=== PATIENT | male | born 1975 | race Caucasian/White ===

== ENCOUNTER 2017-07-01 17:59 | Emergency (ER) | payer BC ==
[2017-07-01 18:24] VITALS: BP 174/91; PULSE 87; TEMP 99; BMI 38.7
--- NOTE | 2017-07-01 18:40 | PDOC ---
History of Present Illness - History of Present Illness Initial Comments: 07/01/17 19:37 The patient is a 42 year old male, with a significant past medical history of IDDM, hypertension, and cigarette smoking, who presents to the emergency department with swelling to his b/l ankles. Patient had a recent stress test done with the [employer] at his primarys office. His heart was found to be normal but he was at risk for peripheral vascular disease. Denies pain in lower extremities. He denies chest pain, shortness of breath, headache and dizziness. He denies fever, chills, nausea, vomit, diarrhea and constipation. He denies dysuria, frequency, urgency and hematuria. Allergies: NKA Social history: pack/day smoker, h/o cocaine/heroin abuse Medications: Aspirin 81 mg PO daily Atorvastation Ca [Lipitor] 20 mg Labetalol 200 mg PO BID Lisinopril 40 mg PO daily PCP: Emely Brice <Irina Gonzalez - Last Filed: 07/01/17 21:16> <Ebony Jansen - Last Filed: 07/02/17 00:37> <Jesus Garner - Last Filed: 07/02/17 07:40> - General Chief Complaint: Edema Stated Complaint: swelling right leg/ankle Time Seen by Provider: 07/01/17 18:40 Past History <Irina Gonzalez - Last Filed: 07/01/17 21:16> <Ebony Jansen - Last Filed: 07/02/17 00:37> - Past Medical History COPD: No Diabetes: Yes (on insulin pump) Disorders: Yes (abnormal renal function) HTN: Yes Hypercholesterolemia: Yes - Suicide/Smoking/Psychosocial Hx Smoking History: Current every day smoker Have you smoked in the past 12 months: Yes Number of Cigarettes Smoked Daily: 20 Information on smoking cessation initiated: Yes 'Breaking Loose' booklet given: 07/01/17 Hx Alcohol Use: No Drug/Substance Use Hx: No Substance Use Type: Cocaine, Heroin Hx Substance Use Treatment: Yes (detox, [facility]) <Jesus Garner - Last Filed: 07/02/17 07:40> - Past Medical History Allergies/Adverse Reactions: Allergies Allergy/AdvReac Type Severity Reaction Status Date / Time No Known Allergies Allergy Verified 07/01/17 18:14 Home Medications: Ambulatory Orders Aspirin 81 mg PO DAILY 07/01/17 Atorvastatin Ca [Lipitor] 20 mg PO HS 07/01/17 Insulin Lispro Protamin/Lispro [Humalog Mix 75-25 Kwikpen] 0 unit SQ PRN Labetalol HCl [Normodyne -] 200 mg PO BID 07/01/17 Lisinopril [Prinivil -] 40 mg PO DAILY 07/01/17 Review of Systems - Review of Systems Comments:: 07/01/17 19:34 GENERAL/CONSTITUTIONAL: No fever or chills. No weakness. HEAD, EYES, EARS, NOSE AND THROAT: No change in vision. No ear pain or discharge. No sore throat. CARDIOVASCULAR: No chest pain or shortness of breath. RESPIRATORY: No cough, wheezing, or hemoptysis. GASTROINTESTINAL: No nausea, vomiting, diarrhea or constipation. GENITOURINARY: No dysuria, frequency, or change in urination. MUSCULOSKELETAL: No joint or muscle swelling or pain. No neck or back pain. SKIN: No rash NEUROLOGIC: No headache, vertigo, loss of consciousness, or change in strength/ sensation. ENDOCRINE: No increased thirst. No abnormal weight change. HEMATOLOGIC/LYMPHATIC: No anemia, easy bleeding, or history of blood clots. Bilateral lower extremity ankle swelling. ALLERGIC/IMMUNOLOGIC: No hives or skin allergy. <Irina Gonzalez - Last Filed: 07/01/17 21:16> *Physical Exam - Vital Signs Last Vital Signs Temp Pulse Resp BP Pulse Ox 99 F 87 18 174/91 99 07/01/17 18:00 07/01/17 18:00 07/01/17 18:00 07/01/17 18:00 07/01/17 18:00 - Physical Exam Comments: 07/01/17 19:35 GENERAL: Awake, alert, and fully oriented, in no acute distress HEAD: No signs of trauma EYES: PERRLA, EOMI, sclera anicteric, conjunctiva clear ENT: Auricles normal inspection, hearing grossly normal, nares patent, oropharynx clear without exudates. Moist mucosa NECK: Normal ROM, supple, no lymphadenopathy, JVD, or masses LUNGS: Breath sounds equal, clear to auscultation bilaterally. No wheezes, and no crackles HEART: Regular rate and rhythm, normal S1 and S2, no murmurs, rubs or gallops ABDOMEN: Soft, nontender, normoactive bowel sounds. No guarding, no rebound. No masses EXTREMITIES: +1 b/l non-pitting ankle edema.Normal range of motion. No clubbing or cyanosis. No cords, erythema, or tenderness NEUROLOGICAL: Cranial nerves II through XII grossly intact. Normal speech, normal gait SKIN: Warm, Dry, normal turgor, no rashes or lesions noted. <Irina Gonzalez - Last Filed: 07/01/17 21:16> - Vital Signs Last Vital Signs Temp Pulse Resp BP Pulse Ox 99 F 87 18 174/91 99 07/01/17 18:00 07/01/17 18:00 07/01/17 18:00 07/01/17 18:00 07/01/17 18:00 <Ebony Jansen - Last Filed: 07/02/17 00:37> - Vital Signs Last Vital Signs Temp Pulse Resp BP Pulse Ox 99 F 87 18 174/91 99 07/01/17 18:00 07/01/17 18:00 07/01/17 18:00 07/01/17 18:00 07/01/17 18:00 <Jesus Garner - Last Filed: 07/02/17 07:40> ED Treatment Course - RADIOLOGY Radiograph Interpretation: 07/01/17 21:16 US- B/L legs Impression: No evidence of deep vein thrombosis in the right of left lower extremities. Mild edema within bilateral lower legs. ankles. Reported by: Spenser Herrera DO [id number]/01/[id number] <Irina Gonzalez - Last Filed: 07/01/17 21:16> - RADIOLOGY Radiology Studies Ordered: Category Date Time Status DUPLEX VASCUL US-2LEGS [US] Stat Ultrasound 07/01/17 19:28 Completed <Ebony Jansen - Last Filed: 07/02/17 00:37> Medical Decision Making - Medical Decision Making Documentation has been prepared under my direction and personally reviewed by me in its entirety. I attest that this documented accurately reflects all work, treatment, procedures and medical decision making performed by me. As noted above, this 42-year-old man with a history of HTN/IDDM/HLD presents with a few week history of bilateral lower extremity edema. Although his PCP believes that this edema is likely related to his antihypertensive medications, patient was told that the results of small possibility that the edema could be related to DVT. Patient was offered ultrasound Doppler studies in the office but patient deferred. He is now concerned that he may have thromboembolic disease. No clear risk factors for DVT: No recent immobilization/surgeries/ long airplane or auto travel; no family history of DVTs Exam as noted Bilateral Doppler duplex studies of lower extremities performed: No evidence of DVT in either. Results discussed with the patient. The patient should elevate his legs as much as possible and continue medications as prescribed. He should follow-up with his PCP, Dr. Brice within the next week. If he has worsening edema/pain or develops shortness of breath, chest pain or cough, he should return to the emergency <Ebony Jansen - Last Filed: 07/02/17 00:37> - Medical Decision Making Patient signed out to Dr. Jansen at 7 PM pending further evaluation <Jesus Garner - Last Filed: 07/02/17 07:40> *DC/Admit/Observation/Transfer <Irina Gonzalez - Last Filed: 07/01/17 21:16> <Ebony Jansen - Last Filed: 07/02/17 00:37> <Jesus Garner - Last Filed: 07/02/17 07:40> Diagnosis at time of Disposition: Bilateral lower extremity edema - Discharge Dispostion Disposition: HOME Condition at time of disposition: Stable - Referrals Referrals: Emely Brice MD [Primary Care Provider] - 7 days - Patient Instructions Printed Discharge Instructions: DI for Peripheral Edema -- Bilateral, Smoking Cessation Additional Instructions: elevate legs as much as possible continue medications as prescribed followup with Dr Brice within 1 week return to ER if you develop pain or shortness of breath - Post Discharge Activity
== END 2017-07-01 21:23 | disposition home or self-care (01) ==
LOC: SUPCPDRO 17:59 → FER 17:59
DX: M79.89 Other specified soft tissue disorders (principal)
CPT/HCPCS: 93970-TC; 99282-25

== ENCOUNTER 2018-02-20 17:55 | Emergency (ER) | payer BC ==
--- NOTE | 2018-02-20 18:12 | PDOC ---
History of Present Illness - General Chief Complaint: Edema Stated Complaint: SWELLING LEGS Time Seen by Provider: 02/20/18 17:57 History Source: Patient Exam Limitations: No Limitations - History of Present Illness Initial Comments: 02/20/18 18:10 Mr Packer is a 43 year old male, with a significant past medical history of IDDM (on insulin pump), hypertension, and current tobacco use, who presents to the emergency department with swelling to his b/l legs. Pt s/p recent stress test which was reportedly normal. Pt contacted his renal doctor (dr Shonna self) who said that he should come to the ER because he has renal insufficiency (as a result of his HTN and Lisinopril ). No pain in the lower extremities. He does have mild chest pain (Which he likens to having a hair pulled out of his chest), no orthopnea, no PND No exertional dyspnea He denies fever, chills, cough. 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 HEAD, EYES, EARS, NOSE AND THROAT: No: change in vision, ear pain, discharge, sore throat, throat swelling. CARDIOVASCULAR: No: chest pain, lightheadedness, palpitations, syncope RESPIRATORY: No: cough, shortness of breath, wheezing, hemoptysis, stridor. GASTROINTESTINAL: No: nausea, vomiting, diarrhea, abdominal pain GENITOURINARY: No: dysuria, hematuria, frequency, urgency, flank pain. MUSCULOSKELETAL: yes: leg swepping No: back pain, neck pain, joint pain, muscle swelling or pain SKIN: No: lesions, pallor, rash or easy bruising. NEUROLOGIC: No: headache, vertigo, paresthesias, weakness ENDOCRINE: No: unexplained weight gain or loss HEMATOLOGIC/LYMPHATIC: No: anemia, easy bleeding, swelling nodes. PE: GENERAL: The patient is in no acute distress. HEAD: Normal with no signs of trauma. EYES: PERRLA, EOMI, sclera anicteric, conjunctiva clear. ENT: Ears normal, nares patent, oropharynx clear without exudates. Moist mucous membranes. NECK: Normal range of motion, supple without lymphadenopathy, JVD, or masses. LUNGS: Breath sounds equal, clear to auscultation bilaterally. No wheezes, and no crackles. HEART:Regular rate and rhythm, normal S1 and S2 without murmur, rub or gallop. ABDOMEN: Soft, nontender, normoactive bowel sounds. No guarding, no rebound. No masses palpable. EXTREMITIES: Normal range of motion, (+) 3+ pitting edema. NEUROLOGICAL: Cranial nerves II through XII grossly intact. Normal speech. No focal neurological deficits. MUSCULOSKELETAL: Back non-tender to palpation, no CVA tenderness SKIN: Warm, Dry, normal turgor, no rashes or lesions noted. 02/20/18 18:31 Past History - Past Medical History Allergies/Adverse Reactions: Allergies Allergy/AdvReac Type Severity Reaction Status Date / Time No Known Allergies Allergy Verified 07/01/17 18:14 Home Medications: Ambulatory Orders Atorvastatin Ca [Lipitor] 20 mg PO HS 07/01/17 Labetalol HCl [Normodyne -] 200 mg PO TID 07/01/17 Hydralazine HCl 300 mg PO TID 02/20/18 COPD: No Diabetes: Yes Disorders: Yes (abnormal renal function) HTN: Yes Hypercholesterolemia: Yes - Suicide/Smoking/Psychosocial Hx Smoking History: Current every day smoker Have you smoked in the past 12 months: Yes Number of Cigarettes Smoked Daily: 20 'Breaking Loose' booklet given: 11/29/12 Hx Alcohol Use: No Drug/Substance Use Hx: No Substance Use Type: Cocaine, Heroin Hx Substance Use Treatment: Yes (detox, [facility]) ED Treatment Course - LABORATORY CBC & Chemistry Diagram: 02/20/18 19:20 02/20/18 19:20 Medical Decision Making - Medical Decision Making 02/20/18 18:36 Twelve-lead EKG was performed and reviewed by me. There is normal sinus rhythm with a normal rate. The axis is normal. The intervals are normal. There are no ST or T wave abnormalities. Impression: Normal twelve-lead EKG 43-year-old male presented to emergency department with bilateral lotion be edema. Differential diagnosis includes: Renal insufficiency, fluid overloading, heart failure, DVT. Labs sent including creatinine, BNP. Chest x-ray ordered to evaluate for heart failure Duplex ordered to evaluate for DVT Pt signed out to Dr Gabriel pending labs, duplex *DC/Admit/Observation/Transfer Diagnosis at time of Disposition: Bilateral lower extremity edema - Discharge Dispostion Disposition: HOME Condition at time of disposition: Stable - Referrals Referrals: Emely Brice MD [Primary Care Provider] - - Patient Instructions Additional Instructions: It is important that you call your doctor in the morning and get an appointment to follow up this week at all possible The results of your d-dimer and TSH are still pending. However I will call you if they are abnormal and there is anything that needs to be addressed tonight. Return to the emergency department immediately with ANY new, persistent or worsening symptoms. Continue any medications as previously prescribed by your physician. You should follow up with your primary doctor as soon as possible regarding today's emergency department visit. . Please make sure your doctor reviews the results of your emergency evaluation. Thank you for coming to the Emergency Department today for your care. It was a pleasure to see you today. Please note that your evaluation is INCOMPLETE until you follow-up with your doctor. - Post Discharge Activity
[2018-02-20 18:53] VITALS: TEMP 98.4; BMI 37.3
--- NOTE | 2018-02-20 19:21 | PDOC ---
*Physical Exam - Vital Signs Last Vital Signs Temp Pulse Resp BP Pulse Ox 98.4 F 86 18 179/93 H 98 02/20/18 17:55 02/20/18 17:55 02/20/18 17:55 02/20/18 17:55 02/20/18 17:55 ED Treatment Course - LABORATORY CBC & Chemistry Diagram: 02/20/18 19:20 02/20/18 19:20 Progress Note - Progress Note Progress Note: Care of this patient was transferred to [place] from Dr. Deleon at 1900 hrs. This is a insulin-dependent diabetic with history of hyperlipidemia and hyper extension. Patient is borderline med compliant. Patient does have renal insufficiency and comes in complaining approximately 1 week of bilateral leg edema. Patient has a workup in progress including blood work and venous Dopplers of his legs bilateral. Patient had an EKG that was normal and a chest x-ray that shows no acute pathology. Patient's troponin and blood work is still pending as well as his venous Doppler results. If patient's workup is negative for any significant new pathology patient will be discharged home and follow up with his primary care doctor Patient is ultrasound Doppler was negative. Patient's CBC is normal with the exception of some mild anemia. Patient's chemistries do show renal insufficiency which is chronic Patient had a d-dimer sent that is still pending as well as a TSH. Patient is aware that these results are still pending I told him I would call him if there was anything that came back abnormal that he needed to address tonight. Patient discharged home and results of his workup *DC/Admit/Observation/Transfer Diagnosis at time of Disposition: Bilateral lower extremity edema - Discharge Dispostion Disposition: HOME Condition at time of disposition: Stable Decision to Admit order: No - Referrals Referrals: Emely Brice MD [Primary Care Provider] - - Patient Instructions Additional Instructions: It is important that you call your doctor in the morning and get an appointment to follow up this week at all possible The results of your d-dimer and TSH are still pending. However I will call you if they are abnormal and there is anything that needs to be addressed tonight. Return to the emergency department immediately with ANY new, persistent or worsening symptoms. Continue any medications as previously prescribed by your physician. You should follow up with your primary doctor as soon as possible regarding today's emergency department visit. . Please make sure your doctor reviews the results of your emergency evaluation. Thank you for coming to the Emergency Department today for your care. It was a pleasure to see you today. Please note that your evaluation is INCOMPLETE until you follow-up with your doctor. - Post Discharge Activity
[2018-02-20 19:39] LABS: BASO % 1.2 % (0-2.0); HEMATOCRIT 28.6 % (35.4-49); HEMOGLOBIN 9.6 GM/dl (11.7-16.9); LYMPH % 18.2 % (8-40); MCHC 33.7 g/dl (32.0-35.9); MEAN CELL VOLUME 91.8 fl (80-96); MEAN PLT VOLUME 8.1 fl (7.5-11.1); MONO % 10.6 % (3.8-10.2); PLATELET COUNT 274 K/MM3 (134-434); RBC 3.12 M/mm3 (4.00-5.60); RDW 12.8 % (11.9-15.9); WHITE BLOOD COUNT 7.7 K/mm3 (4.0-10.8)
[2018-02-20 19:52] LABS: ALBUMIN 3.2 g/dl (3.5-5.0); ALK PHOS 41 U/L (32-92); BILIRUBIN,TOTAL 0.8 mg/dl (0.2-1.0); CREATININE 3.8 mg/dl (0.6-1.3); SGOT/AST 15 U/L (10-42); SGPT/ALT 20 U/L (10-40); TOT PROT 6.2 g/dl (6.4-8.3)
[2018-02-20 19:57] VITALS: BP 170/81; PULSE 78
[2018-02-20 20:00] LABS: ANION GAP 8 MMOL/L (8-16); BLOOD UREA NITROGEN 59 mg/dl (7-18); CALCIUM 8.3 mg/dl (8.4-10.2); CHLORIDE 113 mmol/L (98-107); CO2 18 mmol/L (22-28); GLUCOSE,RANDOM 77 mg/dl (74-106); POTASSIUM 4.9 mmol/L (3.5-5.1); SODIUM 139 mmol/L (136-145)
[2018-02-20 21:04] LABS: N-TERMINAL BNP 732.3 pg/ml (5-125)
--- NOTE | 2018-02-21 10:48 | EKG ---
Test Reason : Blood Pressure : / mmHG Vent. Rate : 079 BPM Atrial Rate : 079 BPM P-R Int : 160 ms QRS Dur : 090 ms QT Int : 378 ms P-R-T Axes : 061 015 021 degrees QTc Int : 433 ms NORMAL SINUS RHYTHM NORMAL ECG WHEN COMPARED WITH ECG OF 02-MAY-2007 08:08, NO SIGNIFICANT CHANGE WAS FOUND Confirmed by Chino Lees MD ([id number]) on 02/21/2018 10:48:08 AM Referred By: Confirmed By:Chino Lees MD
== END 2018-02-20 20:35 | disposition home or self-care (01) ==
LOC: FER 17:55
DX: M79.89 Other specified soft tissue disorders (principal); I10 Essential (primary) hypertension; E11.9 Type 2 diabetes mellitus without complications; F17.210 Nicotine dependence, cigarettes, uncomplicated; N28.9 Disorder of kidney and ureter, unspecified
CPT/HCPCS: 36415; 71045-TC-FY; 80053; 82550; 82553; 83880; 84443; 84484; 85025; 93005; 93970-TC; 99285-25

== ENCOUNTER 2019-05-14 13:08 | Emergency (ER) | payer BC, OTHER ==
[2019-05-14] MEDS ORDERED: DIPHTH,PERTUSS(ACELL),TET 0.5 ML DISP.SYRIN IM ONE ×2 (13:22→13:50)
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
[2019-05-14 13:23] VITALS: BP 165/83; PULSE 77; TEMP 97.5; BMI 37.3
[2019-05-14] MEDS ORDERED: ACETAMINOPHEN 325 MG TABLET (FP) PO ONE (14:18)
[2019-05-14] MEDS ORDERED: ACETAMINOPHEN 500 MG TABLET (FP) ONE (14:26)
[2019-05-14] MEDS ORDERED: ONDANSETRON *ODT* 4 MG TABLET SL ONE (15:51)
[2019-05-14] MEDS ORDERED: CYCLOBENZAPRINE HCL 5 MG TABLET PO ONE (15:51)
[2019-05-14] MEDS ORDERED: LIDOCAINE 5% TOPICAL PATCH TP ONE (15:51)
[2019-05-14] MEDS ORDERED: CYCLOBENZAPRINE HCL 10 MG TABLET (FP) ONE ×2 (15:51)
[2019-05-14] MEDS ORDERED: LIDOCAINE 5% TOPICAL PATCH ONE (15:51)
[2019-05-14] MEDS ORDERED: ONDANSETRON *ODT* 4 MG TABLET ONE (15:53)
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
== END 2019-05-14 16:26 | disposition home or self-care (01) ==
LOC: JER 13:08
CPT/HCPCS: 70450-TC; 72125-TC; 73562-TC-LT-FY; 90715; 99282-25; Q0162

== ENCOUNTER → 2019-12-25 | Day surgery (SDC) | payer OTHER | END | disposition home or self-care (01) | LOC: JRADIR 09:27 | PROC: 02PYX3Z Removal of Infusion Device from Great Vessel, External Approach (ICD-10-PCS; principal; 2019-12-25) | DX: Z45.2 Encounter for adjustment and management of vascular access device (principal) | CPT/HCPCS: 36589 ==

== ENCOUNTER 2020-05-21 17:19 | Emergency (ER) | payer OTHER ==
[2020-05-21 17:39] VITALS: BP 179/94; PULSE 86; TEMP 98.5; BMI 36.9
[2020-05-21] MEDS ORDERED: KETOROLAC TROMETHAMINE 60 MG/2 ML VIAL ONE (18:22)
[2020-05-21] MEDS ORDERED: KETOROLAC TROMETHAMINE 60 MG/2 ML VIAL IM ONE (18:26)
== END 2020-05-21 19:06 | disposition home or self-care (01) ==
LOC: FER 17:19
PROC: 3E0233Z Introduction of Anti-inflammatory into Muscle, Percutaneous Approach (ICD-10-PCS; principal; 2020-05-21)
DX: S20.211A Contusion of right front wall of thorax, initial encounter (principal)
CPT/HCPCS: 71101-TC-RT-FY; 74018-TC-FY; 96372; 99284-25

== ENCOUNTER 2020-12-02 14:13 | Emergency (ER) | payer OTHER ==
[2020-12-02 14:27] VITALS: BP 134/79; PULSE 102; TEMP 97.8; BMI 36.9
[2020-12-02] MEDS ORDERED: ACETAMINOPHEN 325 MG TABLET (FP) PO ONE (14:47)
[2020-12-02] MEDS ORDERED: ACETAMINOPHEN 325 MG TABLET (FP) ONE (15:10)
[2020-12-02 15:56] LABS: ALBUMIN 3.3 g/dl (3.4-5.0); BILIRUBIN,TOTAL 0.7 mg/dl (0.2-1); CREATININE 10.1 mg/dl (0.55-1.3); TOT PROT 6.8 g/dl (6.4-8.2)
[2020-12-02 16:31] LABS: BASO % 0.6 % (0-2.0); EOS % 2.4 % (0-4.5); HEMATOCRIT 28.3 % (35.4-49); LYMPH % 10.5 % (8-40); MCH 33.5 pg (25.7-33.7); MCHC 35.4 g/dl (32.0-35.9); MEAN CELL VOLUME 94.5 fl (80-96); MEAN PLT VOLUME 8.4 fl (7.5-11.1); MONO % 9.3 % (3.8-10.2); NEUT % 77.2 % (42.8-82.8); PLATELET COUNT 248 10^3/uL (134-434); RBC 2.99 M/mm3 (4.00-5.60); WHITE BLOOD COUNT 9.9 K/mm3 (4.0-10.8)
== END 2020-12-02 17:33 | disposition home or self-care (01) ==
LOC: FER 14:13
DX: R25.2 Cramp and spasm (principal)
CPT/HCPCS: 36415; 80053; 83735; 85025; 93005; 99284-25

== ENCOUNTER 2021-01-03 12:35 | Emergency (ER) | payer OTHER ==
[2021-01-03 13:00] VITALS: BP 134/80; PULSE 89; TEMP 97.8; BMI 36.9
[2021-01-03] MEDS ORDERED: AMOX TR/POT CLAV 875MG/125MG TABLETS (FP) PO ONE (13:11)
[2021-01-03] MEDS ORDERED: SULFAMETHOXAZOLE/TRIMETHOPRIM 800MG/160MG D.S. TABLET PO ONE (13:11)
[2021-01-03] MEDS ORDERED: SULFAMETHOXAZOLE/TRIMETHOPRIM 800MG/160MG D.S. TABLET ONE (13:23)
[2021-01-03] MEDS ORDERED: AMOX TR/POT CLAV 875MG/125MG TABLETS (FP) ONE (13:24)
== END 2021-01-03 13:50 | disposition home or self-care (01) ==
LOC: FER 12:35
DX: L03.115 Cellulitis of right lower limb (principal); W55.03XA Scratched by cat, initial encounter; Y92.480 Sidewalk as the place of occurrence of the external cause; Y93.01 Activity, walking, marching and hiking
CPT/HCPCS: 99283-25

== ENCOUNTER 2021-01-18 16:16 | Emergency (ER) | payer OTHER ==
[2021-01-18 16:43] VITALS: BMI 36.9
[2021-01-18 18:12] VITALS: BP 163/90; PULSE 80; TEMP 98
== END 2021-01-18 18:13 | disposition home or self-care (01) ==
LOC: JER 16:16
DX: R60.0 Localized edema (principal)
CPT/HCPCS: 99282-25

== ENCOUNTER 2021-11-17 22:57 | Inpatient (IN) | payer OTHER ==
[2021-11-17 23:19] VITALS: BMI 37.2
[2021-11-18 00:31] LABS: BASO % 1.4 % (0-2.0); EOS % 4.1 % (0-4.5); HEMATOCRIT 29.5 % (35.4-49); HEMOGLOBIN 10.4 GM/dL (11.7-16.9); LYMPH % 20.4 % (8-40); MCH 31.9 pg (25.7-33.7); MCHC 35.2 g/dl (32.0-35.9); MEAN CELL VOLUME 90.6 fl (80-96); NEUT % 62.1 % (42.8-82.8); PLATELET COUNT 199 10^3/uL (134-434); RBC 3.26 M/mm3 (4.00-5.60); RDW 14.5 % (11.9-15.9)
[2021-11-18 00:41] LABS: INR 1.06 (0.83-1.09); PROTHROMBIN TIME (PATIENT) 12.2 SEC (9.7-13.0)
[2021-11-18 00:43] LABS: ACTIVATED PTT 27.4 SECONDS (25.2-36.5)
[2021-11-18 00:47] LABS: CHLORIDE 95 mmol/L (98-107); SODIUM 133 mmol/L (136-145)
[2021-11-18 00:49] LABS: CALCIUM 8.2 mg/dL (8.5-10.1)
[2021-11-18 00:50] LABS: ANION GAP 15 MMOL/L (8-16); BLOOD UREA NITROGEN 77.7 mg/dL (7-18); CO2 23 mmol/L (21-32)
[2021-11-18 00:53] LABS: SGOT/AST 6 U/L (15-37); SGPT/ALT 16 U/L (13-61)
[2021-11-18 00:54] LABS: BILIRUBIN,TOTAL 0.5 mg/dL (0.2-1); TOT PROT 6.9 g/dl (6.4-8.2)
[2021-11-18 00:56] LABS: ALK PHOS 85 U/L (45-117)
[2021-11-18 00:57] LABS: N-TERMINAL BNP 500.7 pg/ml (5-125)
[2021-11-18 01:07] LABS: GLUCOSE,RANDOM 514 mg/dL (74-106)
[2021-11-18 01:08] LABS: CREATININE 10.3 mg/dL (0.55-1.3)
[2021-11-18] MEDS ORDERED: INSULIN REGULAR HUMAN 100 UNITS/ML *VIAL IVPUSH ONE (01:24)
[2021-11-18] MEDS ORDERED: SODIUM CHLORIDE 0.9% 500 ML INFUS.BAG IV ONE (01:25)
[2021-11-18] MEDS ORDERED: LACTATED RINGERS SOLUTION 1000 ML INFUS.BAG IV ONE (03:04)
[2021-11-18] MEDS ORDERED: ACETAMINOPHEN 325 MG TABLET (FP) PO PRN (04:15)
[2021-11-18] MEDS ORDERED: POLYETHYLENE GLYCOL (HEALTHYLAX) 3350 17 GM PACKET PO PRN (04:15)
[2021-11-18] MEDS ORDERED: HEPARIN NA (PORCINE) 5,000 UNITS/ML 1ML VIAL SQ SCH (06:00)
[2021-11-18] MEDS ORDERED: INSULIN SLIDING SCALE (NOVOLOG) 1 VIAL SQ SCH (07:00)
[2021-11-18 07:01] LABS: EPI CELLS 5 /uL (0-25.1); HYALINE CASTS 1 /uL (0-3.1); URINE APPEARANCE CLEAR; URINE BACTERIA 90 /uL (0-1359); URINE BILIRUBIN NEGATIVE (NEGATIVE); URINE COLOR YELLOW; URINE GLUCOSE (UA) 3+ (NEGATIVE); URINE KETONE NEGATIVE (NEGATIVE); URINE LEUK ESTERASE NEGATIVE (NEGATIVE); URINE NITRITE NEGATIVE (NEGATIVE); URINE PROTEIN 3+ (NEGATIVE); URINE RBC 11 /uL (0-23.9); URINE UROBILINOGEN 0.2 mg/dL (0.2-1.0); URINE WBC 5 /uL (0-25.8)
[2021-11-18 08:38] LABS: CHLORIDE 99 mmol/L (98-107); SODIUM 136 mmol/L (136-145)
[2021-11-18 08:41] LABS: ANION GAP 13 MMOL/L (8-16); BLOOD UREA NITROGEN 80.7 mg/dL (7-18); CALCIUM 8.2 mg/dL (8.5-10.1); CO2 23 mmol/L (21-32); GLUCOSE,RANDOM 228 mg/dL (74-106); MAGNESIUM 1.5 mg/dL (1.8-2.4)
[2021-11-18 08:44] LABS: PHOSPHOROUS 6.8 mg/dL (2.5-4.9)
[2021-11-18 09:10] LABS: HEMATOCRIT 28.2 % (35.4-49); HEMOGLOBIN 9.9 GM/dL (11.7-16.9); MCH 30.1 pg (25.7-33.7); MCHC 34.9 g/dl (32.0-35.9); MEAN CELL VOLUME 86.2 fl (80-96); MEAN PLT VOLUME 8.3 fl (7.5-11.1); PLATELET COUNT 181 10^3/uL (134-434); RBC 3.27 M/mm3 (4.00-5.60); RDW 14.9 % (11.9-15.9); WHITE BLOOD COUNT 5.5 K/mm3 (4.0-10.0)
[2021-11-18] MEDS ORDERED: MAGNESIUM SULF 50% (8.12 MEQ/2 ML-1 GM VIAL) IVPB ONE (09:28)
[2021-11-18] MEDS ORDERED: MAGNESIUM SULF 50% (8.12 MEQ/2 ML-1 GM VIAL) ONE (09:36)
[2021-11-18 11:32] LABS: ANISOCYTOSIS 1+; MACROCYTOSIS 0
[2021-11-18] MEDS ORDERED: PERITONEAL DIALYSIS 2.5% SOLN 2,500 ML IP SCH (12:00)
[2021-11-18] MEDS ORDERED: PERITONEAL DIALYSIS 1.5% SOLN 2,500 ML IP SCH (13:30)
[2021-11-18 17:17] VITALS: BP 168/72; PULSE 74; TEMP 98.1
[2021-11-18] MEDS ORDERED: SEVELAMER CARBONATE 800 MG TAB (FP) PO SCH (17:30)
[2021-11-18] MEDS ORDERED: INSULIN (LEVEMIR) 100 UNITS/ML UNITS SQ SCH (22:00)
== END 2021-11-18 17:05 | disposition left against medical advice (07) | DRG 637 ==
LOC: JER 22:57 → JERBED 11-18 04:21
PROVIDERS: ADMIT Hospitalist; ATTEND Family Medicine
DX: E11.65 Type 2 diabetes mellitus with hyperglycemia (principal); N18.6 End stage renal disease; L97.528 Non-pressure chronic ulcer of other part of left foot with other specified severity; I12.0 Hypertensive chronic kidney disease with stage 5 chronic kidney disease or end stage renal disease; L97.818 Non-pressure chronic ulcer of other part of right lower leg with other specified severity; E11.622 Type 2 diabetes mellitus with other skin ulcer; E11.621 Type 2 diabetes mellitus with foot ulcer; E11.22 Type 2 diabetes mellitus with diabetic chronic kidney disease; R42 Dizziness and giddiness; D64.9 Anemia, unspecified; R60.0 Localized edema; Z89.422 Acquired absence of other left toe(s); Z99.2 Dependence on renal dialysis; Z91.14 Patient's other noncompliance with medication regimen
CPT/HCPCS: 0241U-QW; 36415; 71045-TC-FY; 80048; 80053; 81003; 82010; 82962; 83735; 83880; 84100; 84484; 85025; 85610; 85730; 86850; 86900; 86901; 93005; 93010; 99285-25; J1644

== ENCOUNTER 2021-11-18 20:24 | Inpatient (IN) | payer OTHER ==
[2021-11-18] MEDS ORDERED: LABETALOL HCL 5 MG/1 ML (100MG/20 ML VIAL) IVPUSH ONE (21:41)
[2021-11-18] MEDS ORDERED: LABETALOL HCL 5 MG/1 ML (100MG/20 ML VIAL) ONE (21:43)
[2021-11-18 22:01] LABS: BASO % 1.1 % (0-2.0); EOS % 5.2 % (0-4.5); HEMOGLOBIN 10.8 GM/dL (11.7-16.9); LYMPH % 19.5 % (8-40); MCH 34.4 pg (25.7-33.7); MCHC 37.2 g/dl (32.0-35.9); MEAN CELL VOLUME 92.3 fl (80-96); MEAN PLT VOLUME 8.1 fl (7.5-11.1); MONO % 11.7 % (3.8-10.2); NEUT % 62.5 % (42.8-82.8); PLATELET COUNT 203 10^3/uL (134-434); RBC 3.14 M/mm3 (4.00-5.60); RDW 14.7 % (11.9-15.9); WHITE BLOOD COUNT 6.2 K/mm3 (4.0-10.0)
[2021-11-18 22:15] LABS: CHLORIDE 98 mmol/L (98-107); SODIUM 135 mmol/L (136-145)
[2021-11-18 22:18] LABS: ALBUMIN 3.1 g/dl (3.4-5.0); CALCIUM 8.8 mg/dL (8.5-10.1)
[2021-11-18 22:19] LABS: ANION GAP 14 MMOL/L (8-16); BLOOD UREA NITROGEN 82.7 mg/dL (7-18); CO2 22 mmol/L (21-32); GLUCOSE,RANDOM 325 mg/dL (74-106)
[2021-11-18 22:21] LABS: SGOT/AST 20 U/L (15-37)
[2021-11-18 22:22] LABS: SGPT/ALT 20 U/L (13-61)
[2021-11-18 22:23] LABS: BILIRUBIN,TOTAL 0.6 mg/dL (0.2-1)
[2021-11-18 22:24] LABS: ALK PHOS 78 U/L (45-117)
[2021-11-18 22:37] LABS: CREATININE 10.5 mg/dL (0.55-1.3)
[2021-11-18 22:52] LABS: MAGNESIUM 1.8 mg/dL (1.8-2.4)
[2021-11-18 22:55] LABS: PHOSPHOROUS 7.2 mg/dL (2.5-4.9)
[2021-11-19] MEDS ORDERED: INSULIN REGULAR HUMAN 100 UNITS/ML *VIAL SQ ONE (00:12)
[2021-11-19 00:14] LABS: EPI CELLS 3 /uL (0-25.1); HYALINE CASTS 0 /uL (0-3.1); URINE APPEARANCE CLEAR; URINE BACTERIA 24 /uL (0-1359); URINE BILIRUBIN NEGATIVE (NEGATIVE); URINE COLOR YELLOW; URINE GLUCOSE (UA) 3+ (NEGATIVE); URINE KETONE NEGATIVE (NEGATIVE); URINE LEUK ESTERASE NEGATIVE (NEGATIVE); URINE NITRITE NEGATIVE (NEGATIVE); URINE PROTEIN 3+ (NEGATIVE); URINE RBC 8 /uL (0-23.9); URINE UROBILINOGEN 0.2 mg/dL (0.2-1.0); URINE WBC 2 /uL (0-25.8)
[2021-11-19] MEDS ORDERED: POLYETHYLENE GLYCOL (HEALTHYLAX) 3350 17 GM PACKET PO PRN (00:43)
[2021-11-19] MEDS ORDERED: ACETAMINOPHEN 325 MG TABLET (FP) PO PRN (00:43)
[2021-11-19 04:34] VITALS: BMI 38.2
[2021-11-19] MEDS: HEPARIN NA (PORCINE) 5,000 UNITS/ML 1ML VIAL SQ SCH ×3 (06:24→21:43)
[2021-11-19] MEDS: INSULIN SLIDING SCALE (NOVOLOG) 1 VIAL SQ SCH ×4 (06:24→21:43)
[2021-11-19] MEDS ORDERED: ALBUTEROL SO4 HFA INHALER IH PRN (07:19)
[2021-11-19] MEDS: SEVELAMER CARBONATE 800 MG TAB (FP) PO SCH ×3 (09:17→18:21)
[2021-11-19] MEDS: PANTOPRAZOLE 40 MG TABLET PO SCH (09:32)
[2021-11-19] MEDS ORDERED: INSULIN (LEVEMIR) 100 UNITS/ML UNITS SQ SCH ×2 (10:00→22:00)
[2021-11-19 11:11] LABS: CHLORIDE 101 mmol/L (98-107); SODIUM 138 mmol/L (136-145)
[2021-11-19 11:13] LABS: ALBUMIN 2.7 g/dl (3.4-5.0); ANION GAP 14 MMOL/L (8-16); CALCIUM 8.5 mg/dL (8.5-10.1); CO2 23 mmol/L (21-32); GLUCOSE,RANDOM 243 mg/dL (74-106)
[2021-11-19 11:14] LABS: BLOOD UREA NITROGEN 86.6 mg/dL (7-18)
[2021-11-19 11:16] LABS: SGOT/AST 10 U/L (15-37); SGPT/ALT 18 U/L (13-61)
[2021-11-19 11:18] LABS: BILIRUBIN,TOTAL 0.4 mg/dL (0.2-1); IRON SERUM 55 ug/dL (50-175); TOT PROT 6.2 g/dl (6.4-8.2); TOTAL IRON BINDING CAPACITY 180 ug/dL (250-450)
[2021-11-19 11:19] LABS: ALK PHOS 68 U/L (45-117)
[2021-11-19 11:25] LABS: CREATININE 10.2 mg/dL (0.55-1.3)
[2021-11-19] MEDS: ALPRAZolam 0.25 MG TABLET PO PRN ×2 (12:28→21:43)
[2021-11-19] MEDS: LOSARTAN POTASSIUM 50 MG TABLET PO SCH (18:18)
[2021-11-19] MEDS ORDERED: ROSUVASTATIN CA 10 MG TABLET PO SCH (22:00)
[2021-11-19] MEDS: PERITONEAL DIALYSIS 1.5% SOLN 2,500 ML IP SCH (22:39)
[2021-11-20 00:35] LABS: BF WBC & OTHER NUCLEATED CELLS 207 /mm3
[2021-11-20 03:10] LABS: BODY FLUID MACROPHAGES 83 %; BODY FLUID MESOTHELIAL 2 %; BODYL FLD EOSINOPHIL 1 %
[2021-11-20] MEDS: PERITONEAL DIALYSIS 1.5% SOLN 2,500 ML IP SCH ×3 (04:30→11:08)
[2021-11-20] MEDS: HEPARIN NA (PORCINE) 5,000 UNITS/ML 1ML VIAL SQ SCH ×2 (06:13→14:52)
[2021-11-20] MEDS: INSULIN SLIDING SCALE (NOVOLOG) 1 VIAL SQ SCH ×2 (06:33→12:19)
[2021-11-20] MEDS: INSULIN (NOVOLOG) ASPART 100 UNITS/ML 10ML VIAL SQ SCH ×2 (06:34→12:19)
[2021-11-20 06:45] LABS: CHLORIDE 102 mmol/L (98-107); SODIUM 136 mmol/L (136-145)
[2021-11-20 06:47] LABS: CALCIUM 8.2 mg/dL (8.5-10.1)
[2021-11-20 06:48] LABS: ANION GAP 11 MMOL/L (8-16); BLOOD UREA NITROGEN 79.2 mg/dL (7-18); CO2 23 mmol/L (21-32); GLUCOSE,RANDOM 317 mg/dL (74-106); MAGNESIUM 1.8 mg/dL (1.8-2.4)
[2021-11-20 06:51] LABS: PHOSPHOROUS 6.7 mg/dL (2.5-4.9)
[2021-11-20] MEDS ORDERED: INSULIN (LEVEMIR) 100 UNITS/ML UNITS SQ SCH (07:00)
[2021-11-20 07:12] LABS: BASO % 0.9 % (0-2.0); EOS % 5.6 % (0-4.5); HEMATOCRIT 26.2 % (35.4-49); HEMOGLOBIN 9.1 GM/dL (11.7-16.9); LYMPH % 22.8 % (8-40); MCH 29.9 pg (25.7-33.7); MCHC 34.7 g/dl (32.0-35.9); MEAN CELL VOLUME 86.2 fl (80-96); MEAN PLT VOLUME 8.1 fl (7.5-11.1); MONO % 11.4 % (3.8-10.2); NEUT % 59.3 % (42.8-82.8); PLATELET COUNT 182 10^3/uL (134-434); RBC 3.04 M/mm3 (4.00-5.60); RDW 14.5 % (11.9-15.9); WHITE BLOOD COUNT 5.6 K/mm3 (4.0-10.0)
[2021-11-20 07:20] LABS: CREATININE 9.5 mg/dL (0.55-1.3)
[2021-11-20] MEDS: SEVELAMER CARBONATE 800 MG TAB (FP) PO SCH ×2 (09:11→12:40)
[2021-11-20] MEDS: PANTOPRAZOLE 40 MG TABLET PO SCH (09:12)
[2021-11-20] MEDS: LOSARTAN POTASSIUM 50 MG TABLET PO SCH (09:12)
[2021-11-20] MEDS ORDERED: amLODIPine BESYLATE 5 MG TABLET (FP) PO SCH (10:00)
[2021-11-20] MEDS ORDERED: GENTAMICIN SO4 0.1% TOP CREAM 15 GM/TUBE TP SCH (11:00)
[2021-11-20] MEDS ORDERED: VANCOMYCIN IP ONE ×2 (12:00)
[2021-11-20] MEDS ORDERED: CEFTAZIDIME PENTAHYDRATE IP ONE ×2 (12:00)
[2021-11-20] MEDS ORDERED: [UNRECOGNIZED DRUG - OTHER] IP ONE (12:00)
[2021-11-20] MEDS ORDERED: [UNRECOGNIZED DRUG - OTHER] IP ONE (12:00)
[2021-11-20 14:48] VITALS: BP 170/94; PULSE 72; TEMP 97.4
[2021-11-20] MEDS ORDERED: amLODIPine BESYLATE 5 MG TABLET (FP) PO ONE (15:00)
== END 2021-11-20 15:28 | disposition home or self-care (01) | DRG 637 ==
LOC: JER 20:24 → JERBED 11-19 00:42 → J4S 11-19 03:03
PROVIDERS: ADMIT Hospitalist; ATTEND Family Medicine
DX: E11.65 Type 2 diabetes mellitus with hyperglycemia (principal); N18.6 End stage renal disease; K65.9 Peritonitis, unspecified; I12.0 Hypertensive chronic kidney disease with stage 5 chronic kidney disease or end stage renal disease; L97.828 Non-pressure chronic ulcer of other part of left lower leg with other specified severity; L97.818 Non-pressure chronic ulcer of other part of right lower leg with other specified severity; R42 Dizziness and giddiness; D64.9 Anemia, unspecified; R60.0 Localized edema; E11.51 Type 2 diabetes mellitus with diabetic peripheral angiopathy without gangrene; E11.622 Type 2 diabetes mellitus with other skin ulcer; E11.22 Type 2 diabetes mellitus with diabetic chronic kidney disease; Z99.2 Dependence on renal dialysis; Z91.14 Patient's other noncompliance with medication regimen
CPT/HCPCS: 0241U-QW; 36415; 71046-TC-FY; 80048; 80053; 81003; 82728; 82962; 83540; 83550; 83735; 84100; 84484; 85025; 87070; 87075; 87086; 87186; 87205; 93005; 93010; 99285-25; J1644

== ENCOUNTER 2022-03-02 07:05 | Emergency (ER) | payer OTHER ==
[2022-03-02 07:24] VITALS: BMI 36.6
[2022-03-02] MEDS ORDERED: ACETAMINOPHEN 1000 MG/100 ML BAG IVPB ONE (08:30)
[2022-03-02 08:37] VITALS: RESP 18
[2022-03-02] MEDS ORDERED: ACETAMINOPHEN INJECTION 100 ML IVPB ONE (08:40)
[2022-03-02 09:47] LABS: EOS % 0.5 % (0-4.5); HEMATOCRIT 34.9 % (35.4-49); HEMOGLOBIN 12.3 GM/dL (11.7-16.9); LYMPH % 5.9 % (8-40); MCH 32.9 pg (25.7-33.7); MCHC 35.4 g/dl (32.0-35.9); MEAN CELL VOLUME 93.1 fl (80-96); MEAN PLT VOLUME 9.5 fl (7.5-11.1); MONO % 5.9 % (3.8-10.2); NEUT % 86.7 % (42.8-82.8); PLATELET COUNT 228 10^3/uL (134-434); RBC 3.75 M/mm3 (4.00-5.60); RDW 14.8 % (11.9-15.9); WHITE BLOOD COUNT 13.9 K/mm3 (4.0-10.0)
[2022-03-02 09:50] LABS: INR 0.94 (0.83-1.09); PROTHROMBIN TIME (PATIENT) 10.8 SEC (9.7-13.0)
[2022-03-02] MEDS ORDERED: CYCLOBENZAPRINE HCL 10 MG TABLET (FP) PO ONE (09:57)
[2022-03-02] MEDS ORDERED: LIDOCAINE 5% TOPICAL PATCH TP ONE (09:58)
[2022-03-02] MEDS ORDERED: KETOROLAC TROMETHAMINE 15 MG/ML VIAL IVPUSH ONE (09:58)
[2022-03-02] MEDS ORDERED: KETOROLAC TROMETHAMINE 15 MG/ML VIAL ONE (10:02)
[2022-03-02] MEDS ORDERED: CYCLOBENZAPRINE HCL 5 MG TABLET ONE (10:02)
[2022-03-02] MEDS ORDERED: LIDOCAINE 5% TOPICAL PATCH ONE (10:02)
[2022-03-02 10:14] LABS: CHLORIDE 94 mmol/L (98-107); SODIUM 130 mmol/L (136-145)
[2022-03-02 10:16] LABS: CALCIUM 9.5 mg/dL (8.5-10.1)
[2022-03-02 10:18] LABS: ALBUMIN 3.3 g/dl (3.4-5.0); ANION GAP 16 MMOL/L (8-16); CO2 20 mmol/L (21-32)
[2022-03-02 10:20] LABS: SGOT/AST 10 U/L (15-37)
[2022-03-02 10:21] LABS: SGPT/ALT 18 U/L (13-61)
[2022-03-02 10:22] LABS: BILIRUBIN,TOTAL 0.6 mg/dL (0.2-1); TOT PROT 7.4 g/dl (6.4-8.2)
[2022-03-02 10:23] LABS: ALK PHOS 113 U/L (45-117)
[2022-03-02 10:51] LABS: CREATININE 9.1 mg/dL (0.55-1.3); GLUCOSE,RANDOM 494 mg/dL (74-106)
[2022-03-02] MEDS ORDERED: amLODIPine BESYLATE 5 MG TABLET (FP) PO ONE (11:26)
[2022-03-02] MEDS ORDERED: amLODIPine BESYLATE 5 MG TABLET (FP) ONE (11:29)
[2022-03-02 14:19] VITALS: BP 180/90; PULSE 92; TEMP 98.4
[2022-03-02] MEDS ORDERED: LIDOCAINE PATCH REMOVAL MC SCH (22:00)
== END 2022-03-02 14:19 | disposition home or self-care (01) ==
LOC: JER 07:05
PROC: 3E033GC Introduction of Other Therapeutic Substance into Peripheral Vein, Percutaneous Approach (ICD-10-PCS; principal; 2022-03-02)
DX: I10 Essential (primary) hypertension (principal); M25.512 Pain in left shoulder
CPT/HCPCS: 36415; 71046-TC-FY; 73030-TC-LT-FY; 80053; 84484; 85025; 85610; 85730; 93005; 93010; 93971; 99285-25

== ENCOUNTER 2022-04-21 20:42 | Inpatient (IN) | payer OTHER ==
[2022-04-21 23:04] LABS: HEMOGLOBIN 10.8 G/dL (11.7-16.9); MCH 32.6 pg (25.7-33.7); MCHC 36.1 g/dl (32.0-35.9); MEAN CELL VOLUME 90.2 fl (80-96); MEAN PLT VOLUME 7.9 fl (7.5-11.1); PLATELET COUNT 260.6 10^3/uL (134-434); RBC 3.33 10^6/uL (4.00-5.60); RDW 14.2 % (11.9-15.9); WHITE BLOOD COUNT 9.4 10^3/uL (4.0-10.8)
[2022-04-21] MEDS ORDERED: morphine SULFATE 4 MG/ML VIAL ONE (23:04)
[2022-04-21 23:14] LABS: INR 1.02 (0.83-1.09); PROTHROMBIN TIME (PATIENT) 11.7 SEC (9.7-13.0)
[2022-04-21 23:21] LABS: BILIRUBIN,TOTAL 0.7 mg/dl (0.2-1); CALCIUM 8.2 mg/dl (8.5-10); TOT PROT 6.4 g/dl (6.4-8.2)
[2022-04-21 23:23] LABS: CREATININE 9.9 mg/dl (0.55-1.3)
[2022-04-21 23:28] LABS: PLATELET ESTIMATE ADEQUATE
[2022-04-21] MEDS ORDERED: VANCOMYCIN 1,000 MG in DEXTROSE 5%-WATER - 250 ML IVPB ONE (23:34)
[2022-04-21] MEDS ORDERED: VANCOMYCIN 1,000 MG VIAL (RESTRICTED TO ID ONLY) ONE (23:51)
[2022-04-22] MEDS ORDERED: PIPERACILLIN/TAZOB 2.25 GM 2.25 GM in DEXTROSE 5%-WATER - 50 ML IVPB ONE (00:14)
[2022-04-22] MEDS ORDERED: LOSARTAN POTASSIUM 50 MG TABLET PO ONE (02:37)
[2022-04-22] MEDS ORDERED: amLODIPine BESYLATE 5 MG TABLET (FP) PO ONE (02:37)
[2022-04-22] MEDS ORDERED: LOSARTAN POTASSIUM 50 MG TABLET ONE (02:39)
[2022-04-22] MEDS ORDERED: amLODIPine BESYLATE 5 MG TABLET (FP) ONE (02:40)
[2022-04-22] MEDS ORDERED: ACETAMINOPHEN INJECTION 100 ML IVPB ONE (02:43)
[2022-04-22] MEDS ORDERED: KETOROLAC TROMETHAMINE 30 MG/1 ML VIAL ONE (02:43)
[2022-04-22] MEDS ORDERED: morphine CARPU-JECT 2 MG/1 ML DISP.SYRIN IVPUSH ONE (02:52)
[2022-04-22] MEDS ORDERED: morphine SULFATE 4 MG/ML VIAL ONE (03:16)
[2022-04-22] MEDS ORDERED: morphine SULFATE 4 MG/ML VIAL IVPUSH ONE (03:22)
[2022-04-22] MEDS: ACETAMINOPHEN 325 MG TABLET (FP) PO PRN ×2 (07:02→14:10)
[2022-04-22] MEDS: INSULIN SLIDING SCALE (NOVOLOG) 1 VIAL SQ SCH ×4 (07:46→21:22)
[2022-04-22] MEDS ORDERED: POLYETHYLENE GLYCOL (HEALTHYLAX) 3350 17 GM PACKET PO PRN (07:59)
[2022-04-22] MEDS ORDERED: ALBUTEROL SO4 HFA INHALER IH PRN (07:59)
[2022-04-22 08:20] LABS: CALCIUM 8.2 mg/dl (8.5-10); CREATININE 10.1 mg/dl (0.55-1.3); MAGNESIUM 1.8 mg/dL (1.8-2.4); PHOSPHOROUS 6.3 mg/dl (2.5-4.9)
[2022-04-22 08:22] LABS: HEMATOCRIT 28.2 % (35.4-49); HEMOGLOBIN 9.7 G/dL (11.7-16.9); MCH 31.3 pg (25.7-33.7); MCHC 34.5 g/dl (32.0-35.9); MEAN CELL VOLUME 90.7 fl (80-96); MEAN PLT VOLUME 8.1 fl (7.5-11.1); PLATELET COUNT 248.1 10^3/uL (134-434); RBC 3.11 10^6/uL (4.00-5.60); RDW 14.3 % (11.9-15.9); WHITE BLOOD COUNT 8.9 10^3/uL (4.0-10.8)
[2022-04-22] MEDS: PANTOPRAZOLE 40 MG TABLET PO SCH (10:18)
[2022-04-22] MEDS: SACUBITRIL/VALSARTAN 24 MG-26 MG TABLET PO SCH ×2 (10:18→21:23)
[2022-04-22] MEDS ORDERED: VANCOMYCIN 1,000 MG in DEXTROSE 5%-WATER - 250 ML IVPB ONE (11:45)
[2022-04-22] MEDS: PIPERACILLIN/TAZOB 2.25 GM 2.25 GM in DEXTROSE 5%-WATER - 50 ML IVPB SCH ×2 (13:32→20:17)
[2022-04-22] MEDS ORDERED: VANCOMYCIN 1,000 MG in SODIUM CHLORIDE 250 ML IVPB ONE (13:45)
[2022-04-22] MEDS: traMADol HCL 50 MG TABLET PO PRN ×2 (16:54→22:44)
[2022-04-22] MEDS ORDERED: ROSUVASTATIN CA 10 MG TABLET PO SCH (22:00)
[2022-04-23] MEDS: PIPERACILLIN/TAZOB 2.25 GM 2.25 GM in DEXTROSE 5%-WATER - 50 ML IVPB SCH ×3 (02:14→17:48)
[2022-04-23] MEDS: PERITONEAL DIALYSIS 2.5% SOLN 2,500 ML IP SCH ×4 (03:30→22:05)
[2022-04-23] MEDS: INSULIN SLIDING SCALE (NOVOLOG) 1 VIAL SQ SCH ×4 (07:04→21:29)
[2022-04-23] MEDS: PANTOPRAZOLE 40 MG TABLET PO SCH (10:45)
[2022-04-23] MEDS: SACUBITRIL/VALSARTAN 24 MG-26 MG TABLET PO SCH ×2 (10:45→21:26)
[2022-04-23] MEDS ORDERED: MIDAZOLAM HCL 2 MG/2 ML SINGLE DOSE VIAL ONE (11:30)
[2022-04-23] MEDS ORDERED: PROPOFOL 20 ML ONE (11:30)
[2022-04-23] MEDS ORDERED: FENTANYL CITRATE/PF 50 MCG/ML VIAL ONE ×6 (11:30→13:24)
[2022-04-23] MEDS ORDERED: METOCLOPRAMIDE HCL INJECTION 10 MG/2 ML VIAL ONE (12:10)
[2022-04-23] MEDS ORDERED: ONDANSETRON 4 MG/2 ML VIAL IVPUSH PRN ×2 (12:36→12:58)
[2022-04-23] MEDS ORDERED: PROMETHAZINE HCL 25 MG/1 ML VIAL IVPUSH PRN (12:36)
[2022-04-23] MEDS ORDERED: oxyCODONE HCL 5 MG TABLET PO PRN (12:36)
[2022-04-23] MEDS ORDERED: SODIUM CHLORIDE 1,000 ML IV SCH (12:45)
[2022-04-23] MEDS ORDERED: ALBUTEROL SO4 HFA INHALER IH PRN (12:58)
[2022-04-23] MEDS ORDERED: POLYETHYLENE GLYCOL (HEALTHYLAX) 3350 17 GM PACKET PO PRN (12:58)
[2022-04-23] MEDS ORDERED: FENTANYL CITRATE/PF 50 MCG/ML VIAL IVPUSH PRN (12:58)
[2022-04-23] MEDS ORDERED: ACETAMINOPHEN 325 MG TABLET (FP) PO PRN (12:58)
[2022-04-23] MEDS: SODIUM CHLORIDE 1,000 ML IV SCH (13:00)
[2022-04-23] MEDS ORDERED: INSULIN (NOVOLOG) ASPART 100 UNITS/ML 10ML VIAL SQ ONE (13:18)
[2022-04-23] MEDS ORDERED: VANCOMYCIN/WATER FOR INJ (PEG) 1,000 MG/200 ML BAG IVPB ONE (14:45)
[2022-04-23] MEDS: oxyCODONE HCL 5 MG TABLET PO PRN (19:07)
[2022-04-23] MEDS: ROSUVASTATIN CA 10 MG TABLET PO SCH (21:26)
[2022-04-23] MEDS: INSULIN (LEVEMIR) 100 UNITS/ML UNITS SQ SCH (21:29)
[2022-04-24] MEDS: PIPERACILLIN/TAZOB 2.25 GM 2.25 GM in DEXTROSE 5%-WATER - 50 ML IVPB SCH ×3 (01:25→17:03)
[2022-04-24] MEDS: oxyCODONE HCL 5 MG TABLET PO PRN ×2 (01:34→08:58)
[2022-04-24] MEDS: PERITONEAL DIALYSIS 2.5% SOLN 2,500 ML IP SCH ×2 (04:12→10:04)
[2022-04-24] MEDS: SODIUM CHLORIDE 1,000 ML IV SCH ×2 (04:17→16:59)
[2022-04-24] MEDS: INSULIN SLIDING SCALE (NOVOLOG) 1 VIAL SQ SCH ×4 (06:34→21:33)
[2022-04-24] MEDS: INSULIN (LEVEMIR) 100 UNITS/ML UNITS SQ SCH ×2 (06:36→21:36)
[2022-04-24] MEDS: PANTOPRAZOLE 40 MG TABLET PO SCH (09:30)
[2022-04-24] MEDS: SACUBITRIL/VALSARTAN 24 MG-26 MG TABLET PO SCH ×2 (09:30→21:29)
[2022-04-24 09:57] LABS: BASO % 1.2 % (0-2.0); EOS % 3.8 % (0-4.5); HEMATOCRIT 27.1 % (35.4-49); HEMOGLOBIN 9.5 GM/dL (11.7-16.9); LYMPH % 14.8 % (8-40); MCH 32.2 pg (25.7-33.7); MCHC 35.2 g/dl (32.0-35.9); MEAN CELL VOLUME 91.5 fl (80-96); MEAN PLT VOLUME 7.9 fl (7.5-11.1); NEUT % 70.2 % (42.8-82.8); PLATELET COUNT 271 10^3/uL (134-434); RBC 2.97 M/mm3 (4.00-5.60); RDW 14.4 % (11.9-15.9); WHITE BLOOD COUNT 6.9 K/mm3 (4.0-10.0)
[2022-04-24 10:05] LABS: CHLORIDE 105 mmol/L (98-107); SODIUM 138 mmol/L (136-145)
[2022-04-24 10:07] LABS: ANION GAP 10 MMOL/L (8-16); BLOOD UREA NITROGEN 70.4 mg/dL (7-18); CO2 23 mmol/L (21-32); GLUCOSE,RANDOM 173 mg/dL (74-106)
[2022-04-24 10:10] LABS: CREATININE 9.6 mg/dL (0.55-1.3)
[2022-04-24] MEDS: HEPARIN IP SCH ×3 (16:00→22:13)
[2022-04-24] MEDS: PERITONEAL DIALYSIS 2.5% IP SCH ×3 (16:00→22:13)
[2022-04-24] MEDS: traMADol HCL 50 MG TABLET PO PRN (16:45)
[2022-04-24] MEDS ORDERED: ALPRAZolam 0.25 MG TABLET PO ONE (19:56)
[2022-04-24] MEDS: ROSUVASTATIN CA 10 MG TABLET PO SCH (21:30)
[2022-04-25] MEDS: PIPERACILLIN/TAZOB 2.25 GM 2.25 GM in DEXTROSE 5%-WATER - 50 ML IVPB SCH ×2 (02:06→09:29)
[2022-04-25] MEDS: traMADol HCL 50 MG TABLET PO PRN (03:27)
[2022-04-25] MEDS: HEPARIN IP SCH ×3 (04:07→12:49)
[2022-04-25] MEDS: PERITONEAL DIALYSIS 2.5% IP SCH ×3 (04:07→12:49)
[2022-04-25] MEDS: INSULIN (LEVEMIR) 100 UNITS/ML UNITS SQ SCH (06:30)
[2022-04-25] MEDS: INSULIN SLIDING SCALE (NOVOLOG) 1 VIAL SQ SCH ×2 (06:30→12:47)
[2022-04-25 08:49] VITALS: BP 143/101; PULSE 79; RESP 18; TEMP 98.1
[2022-04-25] MEDS: PANTOPRAZOLE 40 MG TABLET PO SCH (09:30)
[2022-04-25] MEDS: SACUBITRIL/VALSARTAN 24 MG-26 MG TABLET PO SCH (09:30)
[2022-04-25 09:44] LABS: BASO % 1.1 % (0-2.0); EOS % 4.4 % (0-4.5); HEMOGLOBIN 10.3 GM/dL (11.7-16.9); LYMPH % 21.4 % (8-40); MCH 32.5 pg (25.7-33.7); MCHC 35.4 g/dl (32.0-35.9); MEAN PLT VOLUME 7.9 fl (7.5-11.1); MONO % 9.9 % (3.8-10.2); NEUT % 63.2 % (42.8-82.8); PLATELET COUNT 311 10^3/uL (134-434); RBC 3.16 M/mm3 (4.00-5.60); RDW 14.5 % (11.9-15.9); WHITE BLOOD COUNT 5.9 K/mm3 (4.0-10.0)
[2022-04-25 09:52] LABS: CHLORIDE 104 mmol/L (98-107); SODIUM 139 mmol/L (136-145)
[2022-04-25 09:57] LABS: ANION GAP 11 MMOL/L (8-16); BLOOD UREA NITROGEN 59.7 mg/dL (7-18); CALCIUM 9.5 mg/dL (8.5-10.1); CO2 23 mmol/L (21-32); GLUCOSE,RANDOM 187 mg/dL (74-106)
[2022-04-25 10:04] LABS: CREATININE 9.3 mg/dL (0.55-1.3)
[2022-04-25 12:11] VITALS: BMI 37.0
== END 2022-04-25 16:31 | disposition home or self-care (01) | DRG 602 ==
LOC: FER 20:42 → FM/S 04-22 02:12 → J4S 04-23 01:51
PROVIDERS: ADMIT Internal Medicine; ATTEND Family Medicine
PROC: 0J9C0ZZ Drainage of Pelvic Region Subcutaneous Tissue and Fascia, Open Approach (ICD-10-PCS; principal; 2022-04-23 11:00)
PROC: 3E1M39Z Irrigation of Peritoneal Cavity using Dialysate, Percutaneous Approach (ICD-10-PCS; 2022-04-24)
DX: L02.211 Cutaneous abscess of abdominal wall (principal); N18.6 End stage renal disease; I12.0 Hypertensive chronic kidney disease with stage 5 chronic kidney disease or end stage renal disease; L97.909 Non-pressure chronic ulcer of unspecified part of unspecified lower leg with unspecified severity; R10.30 Lower abdominal pain, unspecified; Z99.2 Dependence on renal dialysis; D63.1 Anemia in chronic kidney disease; E10.22 Type 1 diabetes mellitus with diabetic chronic kidney disease; E10.40 Type 1 diabetes mellitus with diabetic neuropathy, unspecified; E10.8 Type 1 diabetes mellitus with unspecified complications; E10.65 Type 1 diabetes mellitus with hyperglycemia; E66.9 Obesity, unspecified; Z68.37 Body mass index [BMI] 37.0-37.9, adult; L02.219 Cutaneous abscess of trunk, unspecified; F17.210 Nicotine dependence, cigarettes, uncomplicated
CPT/HCPCS: 36415; 80048; 80053; 81003; 81015; 82962; 83036; 83735; 84100; 85025; 85027; 85610; 85730; 86850; 86900; 86901; 87040; 87070; 87075; 87205; 93005; 94760; 99285-25; C9803-CS; G0480; J1644; U0003; U0005

== ENCOUNTER 2022-05-29 19:00 | Emergency (ER) | payer OTHER ==
[2022-05-29 19:27] VITALS: BP 193/104; PULSE 94; RESP 18; TEMP 99.1; BMI 35.6
[2022-05-29] MEDS ORDERED: AMOXICILLIN 500 MG CAPSULE (FP) PO ONE (20:22)
[2022-05-29] MEDS ORDERED: AMOXICILLIN 250 MG CAPSULE ONE (20:32)
== END 2022-05-29 20:40 | disposition home or self-care (01) ==
LOC: FER 19:00
DX: H66.91 Otitis media, unspecified, right ear (principal)
CPT/HCPCS: 0241U-QW; 99283-25

== ENCOUNTER 2023-04-01 10:38 | Inpatient (IN) | payer OTHER ==
[2023-04-01 13:33] LABS: BASO % 0.8 % (0-2.0); EOS % 3.7 % (0-4.5); HEMATOCRIT 30.8 % (35.4-49); HEMOGLOBIN 10.8 GM/dL (11.7-16.9); LYMPH % 16.8 % (8-40); MCH 32.5 pg (25.7-33.7); MEAN CELL VOLUME 92.8 fl (80-96); MONO % 8.6 % (3.8-10.2); NEUT % 70.1 % (42.8-82.8); PLATELET COUNT 289 10^3/uL (134-434); RBC 3.32 M/mm3 (4.00-5.60); RDW 14.1 % (11.9-15.9); WHITE BLOOD COUNT 9.5 K/mm3 (4.0-10.0)
[2023-04-01 13:35] LABS: PROTHROMBIN TIME (PATIENT) 11.6 SEC (9.7-13.0)
[2023-04-01 13:37] LABS: ACTIVATED PTT 28.5 SECONDS (25.2-36.5)
[2023-04-01 13:46] LABS: CHLORIDE 92 mmol/L (98-107)
[2023-04-01 13:49] LABS: BLOOD UREA NITROGEN 91.5 mg/dL (7-18); CALCIUM 8.8 mg/dL (8.5-10.1)
[2023-04-01 13:50] LABS: ALBUMIN 3.3 g/dl (3.4-5.0); CO2 23 mmol/L (21-32); GLUCOSE,RANDOM 173 mg/dL (74-106)
[2023-04-01 13:52] LABS: MAGNESIUM 2.1 mg/dL (1.8-2.4); SGPT/ALT 12 U/L (13-61)
[2023-04-01 13:53] LABS: SGOT/AST < 3 U/L (15-37)
[2023-04-01 13:54] LABS: ALK PHOS 67 U/L (45-117); BILIRUBIN,TOTAL 0.6 mg/dL (0.2-1); TOT PROT 7.1 g/dl (6.4-8.2)
[2023-04-01 13:55] LABS: ANION GAP 22 mmol/L (4-13); CREATININE 11.9 mg/dL (0.55-1.3); POTASSIUM 4.4 mmol/L (3.5-5.1); SODIUM 136 mmol/L (136-145)
[2023-04-01 14:15] LABS: ERYTHROCYTE SEDIMENTATION RATE 103 mm/hr (0-10)
[2023-04-01] MEDS ORDERED: HEPARIN NA (PORCINE) 5,000 UNITS/ML 1ML VIAL IVPUSH PRN (17:03)
[2023-04-01] MEDS ORDERED: ACETAMINOPHEN INJECTION 100 ML IVPB ONE (17:23)
[2023-04-01] MEDS ORDERED: oxyCODONE HCL 5 MG TABLET PO ONE (17:55)
[2023-04-01] MEDS ORDERED: HEPARIN INFUSION - 25,000 UNITS/500 ML INFUS.BAG IVPB ONE (17:58)
[2023-04-01] MEDS ORDERED: oxyCODONE HCL 5 MG TABLET ONE (18:00)
[2023-04-01] MEDS: HEPARIN - 25,000 UNIT in SODIUM CHLORIDE 495 ML IV SCH (18:01)
[2023-04-02] MEDS ORDERED: CARVEDILOL 6.25 MG TABLET (FP) ONE (01:31)
[2023-04-02] MEDS ORDERED: ROSUVASTATIN CA 5 MG TABLET ONE (01:31)
[2023-04-02] MEDS ORDERED: PREGABALIN 50 MG CAPSULE ONE (01:31)
[2023-04-02] MEDS ORDERED: SACUBITRIL/VALSARTAN 24 MG-26 MG TABLET ONE (01:31)
[2023-04-02] MEDS: SACUBITRIL/VALSARTAN 24 MG-26 MG TABLET PO SCH ×3 (01:40→21:56)
[2023-04-02] MEDS: ROSUVASTATIN CA 10 MG TABLET PO SCH ×2 (01:40→21:56)
[2023-04-02] MEDS: CARVEDILOL 6.25 MG TABLET (FP) PO SCH ×3 (01:40→21:56)
[2023-04-02] MEDS: PREGABALIN 50 MG CAPSULE PO SCH ×3 (01:40→21:56)
[2023-04-02] MEDS: INSULIN SLIDING SCALE (NOVOLOG) 1 VIAL SQ SCH ×5 (01:46→21:58)
[2023-04-02] MEDS: PERITONEAL DIALYSIS 2.5% SOLN 2,500 ML IP SCH ×5 (03:42→23:06)
[2023-04-02] MEDS: ACETAMINOPHEN 1000 MG/100 ML BAG IVPB PRN ×3 (05:05→15:38)
[2023-04-02] MEDS: oxyCODONE HCL 5 MG TABLET PO PRN ×2 (15:37→21:56)
[2023-04-02] MEDS: ALPRAZolam 0.25 MG TABLET PO PRN (15:38)
[2023-04-02] MEDS: HEPARIN - 25,000 UNIT in SODIUM CHLORIDE 495 ML IV SCH (17:47)
[2023-04-02] MEDS: GENTAMICIN SO4 0.1% TOPICAL OINTMENT 15 GM/TUBE TUBE TP SCH (22:43)
[2023-04-03] MEDS: PERITONEAL DIALYSIS 2.5% SOLN 2,500 ML IP SCH ×4 (05:06→23:41)
[2023-04-03] MEDS: oxyCODONE HCL 5 MG TABLET PO PRN ×2 (06:08→20:03)
[2023-04-03] MEDS: INSULIN SLIDING SCALE (NOVOLOG) 1 VIAL SQ SCH ×4 (06:09→21:50)
[2023-04-03 08:16] LABS: CHLORIDE 89 mmol/L (98-107); SODIUM 128 mmol/L (136-145)
[2023-04-03 08:18] LABS: ANION GAP 14 mmol/L (4-13); BLOOD UREA NITROGEN 85.8 mg/dL (7-18); CO2 25 mmol/L (21-32); GLUCOSE,RANDOM 289 mg/dL (74-106)
[2023-04-03 08:24] LABS: CREATININE 12.7 mg/dL (0.55-1.3)
[2023-04-03 08:59] LABS: HEMATOCRIT 25.9 % (35.4-49); HEMOGLOBIN 9.2 GM/dL (11.7-16.9); MEAN CELL VOLUME 86.9 fl (80-96); RBC 2.98 M/mm3 (4.00-5.60); WHITE BLOOD COUNT 7.6 K/mm3 (4.0-10.0)
[2023-04-03 09:00] LABS: EOS % 3.5 % (0-4.5); LYMPH % 18.1 % (8-40); MCHC 35.7 g/dl (32.0-35.9); MEAN PLT VOLUME 7.7 fl (7.5-11.1); MONO % 8.2 % (3.8-10.2); NEUT % 69.2 % (42.8-82.8); PLATELET COUNT 220 10^3/uL (134-434); RDW 14.1 % (11.9-15.9)
[2023-04-03] MEDS: HEPARIN NA (PORCINE) 5,000 UNITS/ML 1ML VIAL IVPUSH PRN (09:36)
[2023-04-03] MEDS: VITAMIN B COMP W-C 1 EA TABLET (NEPHRO-VITE) PO SCH (09:36)
[2023-04-03] MEDS: PREGABALIN 50 MG CAPSULE PO SCH ×2 (09:37→21:46)
[2023-04-03] MEDS: CARVEDILOL 6.25 MG TABLET (FP) PO SCH ×2 (09:37→21:46)
[2023-04-03] MEDS: SACUBITRIL/VALSARTAN 24 MG-26 MG TABLET PO SCH ×2 (09:37→21:45)
[2023-04-03] MEDS: GENTAMICIN SO4 0.1% TOPICAL OINTMENT 15 GM/TUBE TUBE TP SCH ×2 (09:45→21:48)
[2023-04-03] MEDS: HEPARIN - 25,000 UNIT in SODIUM CHLORIDE 495 ML IV SCH (18:57)
[2023-04-03] MEDS: POLYETHYLENE GLYCOL (HEALTHYLAX) 3350 17 GM PACKET PO SCH (21:43)
[2023-04-03] MEDS: ROSUVASTATIN CA 10 MG TABLET PO SCH (21:45)
[2023-04-03] MEDS: ALPRAZolam 0.25 MG TABLET PO PRN (22:02)
[2023-04-04 01:13] LABS: EPI CELLS 30 /uL (0-25.1); HYALINE CASTS 0 /uL (0-3.1); URINE BACTERIA 7 /uL (0-1359); URINE RBC 12 /uL (0-23.9); URINE WBC 40 /uL (0-25.8)
[2023-04-04] MEDS: HEPARIN NA (PORCINE) 5,000 UNITS/ML 1ML VIAL IVPUSH PRN ×3 (01:49→17:11)
[2023-04-04] MEDS: ACETAMINOPHEN 325 MG TABLET (FP) PO PRN ×2 (04:37→14:08)
[2023-04-04] MEDS ORDERED: PANTOPRAZOLE SODIUM 40 MG VIAL IVPUSH ONE (05:18)
[2023-04-04] MEDS ORDERED: SIMETHICONE 80 MG TAB.CHEW (FP) PO ONE (05:20)
[2023-04-04] MEDS: PERITONEAL DIALYSIS 2.5% SOLN 2,500 ML IP SCH ×4 (05:30→23:10)
[2023-04-04] MEDS: INSULIN SLIDING SCALE (NOVOLOG) 1 VIAL SQ SCH ×4 (06:01→22:10)
[2023-04-04 08:17] LABS: CHLORIDE 92 mmol/L (98-107); POTASSIUM 4.1 mmol/L (3.5-5.1); SODIUM 129 mmol/L (136-145)
[2023-04-04 08:20] LABS: ANION GAP 13 mmol/L (4-13); CALCIUM 8.6 mg/dL (8.5-10.1); CO2 25 mmol/L (21-32); GLUCOSE,RANDOM 285 mg/dL (74-106)
[2023-04-04 08:21] LABS: ALBUMIN 2.7 g/dl (3.4-5.0); BLOOD UREA NITROGEN 80.6 mg/dL (7-18)
[2023-04-04 08:23] LABS: PHOSPHOROUS 7.3 mg/dL (2.5-4.9); SGPT/ALT 9 U/L (13-61)
[2023-04-04 08:24] LABS: SGOT/AST 4 U/L (15-37)
[2023-04-04 08:25] LABS: BILIRUBIN,TOTAL 0.4 mg/dL (0.2-1)
[2023-04-04 08:26] LABS: ALK PHOS 70 U/L (45-117)
[2023-04-04 08:39] LABS: CREATININE 12.2 mg/dL (0.55-1.3)
[2023-04-04 08:57] LABS: URINE APPEARANCE Clear; URINE BILIRUBIN Negative (NEGATIVE); URINE COLOR Yellow; URINE GLUCOSE (UA) 2+ (NEGATIVE); URINE KETONE Negative (NEGATIVE); URINE LEUK ESTERASE Negative (NEGATIVE); URINE NITRITE Negative (NEGATIVE); URINE PROTEIN 2+ (NEGATIVE); URINE UROBILINOGEN 0.2 mg/dL (0.2-1.0)
[2023-04-04 09:14] LABS: HEMOGLOBIN 9.5 GM/dL (11.7-16.9); MCH 30.9 pg (25.7-33.7); MCHC 35.1 g/dl (32.0-35.9); MEAN CELL VOLUME 87.9 fl (80-96); MEAN PLT VOLUME 7.7 fl (7.5-11.1); PLATELET COUNT 200 10^3/uL (134-434); RBC 3.08 M/mm3 (4.00-5.60); RDW 14.3 % (11.9-15.9); WHITE BLOOD COUNT 9.2 K/mm3 (4.0-10.0)
[2023-04-04] MEDS: SACUBITRIL/VALSARTAN 24 MG-26 MG TABLET PO SCH ×2 (10:11→22:09)
[2023-04-04] MEDS: PREGABALIN 50 MG CAPSULE PO SCH ×2 (10:11→22:09)
[2023-04-04] MEDS: VITAMIN B COMP W-C 1 EA TABLET (NEPHRO-VITE) PO SCH (10:11)
[2023-04-04] MEDS: POLYETHYLENE GLYCOL (HEALTHYLAX) 3350 17 GM PACKET PO SCH (10:11)
[2023-04-04] MEDS: CARVEDILOL 6.25 MG TABLET (FP) PO SCH ×2 (10:11→22:09)
[2023-04-04] MEDS: GENTAMICIN SO4 0.1% TOPICAL OINTMENT 15 GM/TUBE TUBE TP SCH ×2 (10:12→22:11)
[2023-04-04] MEDS: oxyCODONE HCL 5 MG TABLET PO PRN ×3 (10:12→18:08)
[2023-04-04] MEDS: HEPARIN - 25,000 UNIT in SODIUM CHLORIDE 495 ML IV SCH ×2 (14:34→18:29)
[2023-04-04] MEDS: ROSUVASTATIN CA 10 MG TABLET PO SCH (22:09)
[2023-04-05] MEDS ORDERED: LIDOCAINE HCL 1%, 10 MG/ML (20ML VIAL) INF ONE
[2023-04-05] MEDS ORDERED: IOVERSOL 320 MG/ML ML IV ONE
[2023-04-05] MEDS ORDERED: HEPARIN NA (PORCINE) 5,000 UNITS/ML 1ML VIAL SQ ONE
[2023-04-05] MEDS ORDERED: ceFAZolin SODIUM 1 GM VIAL IVPB ONE
[2023-04-05] MEDS ORDERED: ACETAMINOPHEN 1000 MG/100 ML BAG IVPB ONE (00:13)
[2023-04-05] MEDS ORDERED: ACETAMINOPHEN 1000 MG/100 ML BAG IVPB PRN (00:17)
[2023-04-05] MEDS: oxyCODONE HCL 5 MG TABLET PO PRN ×4 (02:29→20:04)
[2023-04-05] MEDS: PERITONEAL DIALYSIS 2.5% SOLN 2,500 ML IP SCH ×3 (05:13→17:57)
[2023-04-05] MEDS: INSULIN SLIDING SCALE (NOVOLOG) 1 VIAL SQ SCH ×4 (06:06→21:43)
[2023-04-05] MEDS ORDERED: SENNOSIDES 8.6MG TABLET (FP) PO PRN (08:45)
[2023-04-05 09:43] LABS: HEMATOCRIT 29.1 % (35.4-49); HEMOGLOBIN 9.9 GM/dL (11.7-16.9); MCH 31.3 pg (25.7-33.7); MCHC 33.9 g/dl (32.0-35.9); MEAN CELL VOLUME 92.4 fl (80-96); PLATELET COUNT 227 10^3/uL (134-434); RBC 3.15 M/mm3 (4.00-5.60); WHITE BLOOD COUNT 7.8 K/mm3 (4.0-10.0)
[2023-04-05 09:56] LABS: CHLORIDE 92 mmol/L (98-107); POTASSIUM 4.2 mmol/L (3.5-5.1); SODIUM 129 mmol/L (136-145)
[2023-04-05 09:58] LABS: ALBUMIN 2.8 g/dl (3.4-5.0); ANION GAP 10 mmol/L (4-13); BLOOD UREA NITROGEN 69.2 mg/dL (7-18); CALCIUM 8.8 mg/dL (8.5-10.1); CO2 27 mmol/L (21-32); GLUCOSE,RANDOM 276 mg/dL (74-106)
[2023-04-05] MEDS: PREGABALIN 50 MG CAPSULE PO SCH ×2 (10:00→21:42)
[2023-04-05] MEDS: VITAMIN B COMP W-C 1 EA TABLET (NEPHRO-VITE) PO SCH (10:00)
[2023-04-05] MEDS: CARVEDILOL 6.25 MG TABLET (FP) PO SCH ×2 (10:00→21:42)
[2023-04-05] MEDS: SACUBITRIL/VALSARTAN 24 MG-26 MG TABLET PO SCH ×2 (10:00→21:42)
[2023-04-05] MEDS: POLYETHYLENE GLYCOL (HEALTHYLAX) 3350 17 GM PACKET PO SCH (10:00)
[2023-04-05 10:01] LABS: SGPT/ALT 10 U/L (13-61)
[2023-04-05 10:02] LABS: SGOT/AST 5 U/L (15-37)
[2023-04-05] MEDS: GENTAMICIN SO4 0.1% TOPICAL OINTMENT 15 GM/TUBE TUBE TP SCH ×2 (10:02→21:42)
[2023-04-05 10:03] LABS: BILIRUBIN,TOTAL 0.4 mg/dL (0.2-1); TOT PROT 6.4 g/dl (6.4-8.2)
[2023-04-05 10:04] LABS: ALK PHOS 61 U/L (45-117)
[2023-04-05 10:07] LABS: CREATININE 10.9 mg/dL (0.55-1.3)
[2023-04-05] MEDS ORDERED: LIDOCAINE HCL 1%, 10 MG/ML (20ML VIAL) ONE (14:54)
[2023-04-05] MEDS ORDERED: HEPARIN NA (PORCINE) 5,000 UNITS/ML 1ML VIAL ONE (14:54)
[2023-04-05] MEDS ORDERED: PERITONEAL DIALYSIS 2.5% SOLN 2,500 ML IP SCH (15:29)
[2023-04-05] MEDS: SEVELAMER CARBONATE 800 MG TAB (FP) PO SCH (17:04)
[2023-04-05] MEDS: HEPARIN NA (PORCINE) 5,000 UNITS/ML 1ML VIAL IVPUSH PRN (20:22)
[2023-04-05] MEDS: ROSUVASTATIN CA 10 MG TABLET PO SCH (21:42)
[2023-04-06] MEDS: PERITONEAL DIALYSIS 2.5% SOLN 2,500 ML IP SCH ×3 (00:17→17:46)
[2023-04-06] MEDS: ALPRAZolam 0.25 MG TABLET PO PRN ×2 (01:35→22:31)
[2023-04-06] MEDS: oxyCODONE HCL 5 MG TABLET PO PRN ×3 (03:14→20:48)
[2023-04-06] MEDS: PERITONEAL DIALYSIS 4.25% SOL 2,500 ML IP SCH (06:13)
[2023-04-06] MEDS: INSULIN SLIDING SCALE (NOVOLOG) 1 VIAL SQ SCH ×4 (06:40→22:17)
[2023-04-06] MEDS: SEVELAMER CARBONATE 800 MG TAB (FP) PO SCH ×3 (08:07→16:49)
[2023-04-06 08:47] LABS: HEMATOCRIT 28.2 % (35.4-49); HEMOGLOBIN 9.8 GM/dL (11.7-16.9); MCH 32.6 pg (25.7-33.7); MCHC 34.6 g/dl (32.0-35.9); MEAN CELL VOLUME 94.3 fl (80-96); MEAN PLT VOLUME 7.8 fl (7.5-11.1); PLATELET COUNT 217 10^3/uL (134-434); RBC 2.99 M/mm3 (4.00-5.60); RDW 13.9 % (11.9-15.9); WHITE BLOOD COUNT 7.9 K/mm3 (4.0-10.0)
[2023-04-06] MEDS: POLYETHYLENE GLYCOL (HEALTHYLAX) 3350 17 GM PACKET PO SCH ×3 (08:51→22:18)
[2023-04-06] MEDS: SACUBITRIL/VALSARTAN 24 MG-26 MG TABLET PO SCH ×2 (09:27→22:13)
[2023-04-06] MEDS: CARVEDILOL 6.25 MG TABLET (FP) PO SCH ×2 (09:27→22:13)
[2023-04-06] MEDS: PREGABALIN 50 MG CAPSULE PO SCH ×2 (09:27→22:13)
[2023-04-06] MEDS: VITAMIN B COMP W-C 1 EA TABLET (NEPHRO-VITE) PO SCH (09:28)
[2023-04-06] MEDS: CINACALCET HCL 30 MG TAB (FP) PO SCH (09:28)
[2023-04-06] MEDS: GENTAMICIN SO4 0.1% TOPICAL OINTMENT 15 GM/TUBE TUBE TP SCH ×2 (09:30→22:13)
[2023-04-06] MEDS ORDERED: MAG HYDROX/AL HYDROX/SIMETH 30 ML UNIT-DOSE CUP PO PRN (10:31)
[2023-04-06] MEDS: HEPARIN - 25,000 UNIT in SODIUM CHLORIDE 495 ML IV SCH (10:36)
[2023-04-06] MEDS ORDERED: LACTULOSE 20 GM/30 ML UDC (FOR ORAL USE ONLY) PO ONE (10:47)
[2023-04-06 15:54] VITALS: BMI 33.9
[2023-04-06] MEDS: ROSUVASTATIN CA 10 MG TABLET PO SCH (22:13)
[2023-04-07] MEDS: PERITONEAL DIALYSIS 2.5% SOLN 2,500 ML IP SCH ×4 (00:14→21:20)
[2023-04-07] MEDS ORDERED: ACETAMINOPHEN 1000 MG/100 ML BAG IVPB ONE (00:17)
[2023-04-07] MEDS: POLYETHYLENE GLYCOL (HEALTHYLAX) 3350 17 GM PACKET PO SCH ×3 (05:44→21:41)
[2023-04-07] MEDS: PERITONEAL DIALYSIS 4.25% SOL 2,500 ML IP SCH (06:30)
[2023-04-07] MEDS: INSULIN SLIDING SCALE (NOVOLOG) 1 VIAL SQ SCH ×4 (06:55→21:40)
[2023-04-07 07:44] LABS: HEMATOCRIT 26.1 % (35.4-49); HEMOGLOBIN 8.9 GM/dL (11.7-16.9); MCH 31.4 pg (25.7-33.7); MCHC 33.9 g/dl (32.0-35.9); MEAN CELL VOLUME 92.6 fl (80-96); MEAN PLT VOLUME 8.1 fl (7.5-11.1); PLATELET COUNT 209 10^3/uL (134-434); RBC 2.82 M/mm3 (4.00-5.60); WHITE BLOOD COUNT 8.1 K/mm3 (4.0-10.0)
[2023-04-07] MEDS: SEVELAMER CARBONATE 800 MG TAB (FP) PO SCH ×3 (08:02→18:10)
[2023-04-07] MEDS: oxyCODONE HCL 5 MG TABLET PO PRN ×2 (08:05→20:52)
[2023-04-07 08:54] LABS: ALBUMIN 2.3 g/dl (3.4-5.0); ALK PHOS 56 U/L (45-117); ANION GAP 12 mmol/L (4-13); BILIRUBIN,TOTAL 0.3 mg/dL (0.2-1); BLOOD UREA NITROGEN 59.6 mg/dL (7-18); CALCIUM 8.7 mg/dL (8.5-10.1); CHLORIDE 97 mmol/L (98-107); CO2 24 mmol/L (21-32); CREATININE 9.9 mg/dL (0.55-1.3); GLUCOSE,RANDOM 307 mg/dL (74-106); SGOT/AST 10 U/L (15-37); SGPT/ALT 17 U/L (13-61); SODIUM 133 mmol/L (136-145); TOT PROT 5.9 g/dl (6.4-8.2)
[2023-04-07] MEDS: PREGABALIN 50 MG CAPSULE PO SCH ×2 (09:06→21:41)
[2023-04-07] MEDS: SACUBITRIL/VALSARTAN 24 MG-26 MG TABLET PO SCH ×2 (09:07→21:41)
[2023-04-07] MEDS: VITAMIN B COMP W-C 1 EA TABLET (NEPHRO-VITE) PO SCH (09:07)
[2023-04-07] MEDS: CARVEDILOL 6.25 MG TABLET (FP) PO SCH ×2 (09:07→21:41)
[2023-04-07] MEDS: GENTAMICIN SO4 0.1% TOPICAL OINTMENT 15 GM/TUBE TUBE TP SCH ×2 (09:08→21:40)
[2023-04-07] MEDS: CINACALCET HCL 30 MG TAB (FP) PO SCH (09:19)
[2023-04-07] MEDS ORDERED: HEPARIN NA (PORCINE) 5,000 UNITS/ML 1ML VIAL ONE ×2 (15:16→16:39)
[2023-04-07] MEDS ORDERED: PROPOFOL 20 ML ONE ×2 (15:27→16:52)
[2023-04-07] MEDS ORDERED: FENTANYL CITRATE/PF 50 MCG/ML VIAL ONE (15:27)
[2023-04-07] MEDS ORDERED: MIDAZOLAM HCL 2 MG/2 ML SINGLE DOSE VIAL ONE (15:28)
[2023-04-07] MEDS ORDERED: KETAMINE HCL 200 MG/20 ML VIAL ONE (15:30)
[2023-04-07] MEDS ORDERED: oxyCODONE HCL 5 MG TABLET PO PRN ×2 (15:37)
[2023-04-07] MEDS ORDERED: ONDANSETRON 4 MG/2 ML VIAL IVPUSH PRN ×2 (15:37→18:14)
[2023-04-07] MEDS ORDERED: SODIUM CHLORIDE 1,000 ML IV SCH (15:45)
[2023-04-07] MEDS ORDERED: ceFAZolin SODIUM 1 GM VIAL IVPB ONE (15:55)
[2023-04-07] MEDS ORDERED: ceFAZolin SODIUM 1 GM VIAL ONE (15:58)
[2023-04-07] MEDS ORDERED: LIDOCAINE HCL 1%, 10 MG/ML (20ML VIAL) NR ONE ×3 (16:07→17:02)
[2023-04-07] MEDS ORDERED: HEPARIN NA (PORCINE) 5,000 UNITS/ML 1ML VIAL SQ ONE (17:03)
[2023-04-07] MEDS ORDERED: PERITONEAL DIALYSIS 2.5% SOLN 2,500 ML IP SCH (20:15)
[2023-04-07] MEDS: INSULIN (LEVEMIR) 100 UNITS/ML UNITS SQ SCH (21:39)
[2023-04-07] MEDS: ACETAMINOPHEN 325 MG TABLET (FP) PO PRN (21:41)
[2023-04-07] MEDS: CLOPIDOGREL BISULFATE 75 MG TABLET (FP) PO SCH (21:41)
[2023-04-07] MEDS: ASPIRIN 81 MG CHEWABLE TABLETS PO SCH (21:41)
[2023-04-07] MEDS: ROSUVASTATIN CA 10 MG TABLET PO SCH (21:41)
[2023-04-07] MEDS: ALPRAZolam 0.25 MG TABLET PO PRN (21:42)
[2023-04-07] MEDS: SENNOSIDES 8.6MG TABLET (FP) PO PRN (21:45)
[2023-04-07] MEDS ORDERED: INSULIN (LEVEMIR) 100 UNITS/ML UNITS SQ SCH (22:00)
[2023-04-08] MEDS ORDERED: PERITONEAL DIALYSIS 2.5% SOLN 2,500 ML IP SCH
[2023-04-08] MEDS: oxyCODONE HCL 5 MG TABLET PO PRN ×3 (02:04→10:41)
[2023-04-08] MEDS: PERITONEAL DIALYSIS 2.5% SOLN 2,500 ML IP SCH ×3 (03:40→21:32)
[2023-04-08] MEDS ORDERED: PERITONEAL DIALYSIS 4.25% SOL 2,500 ML IP SCH (06:00)
[2023-04-08] MEDS: POLYETHYLENE GLYCOL (HEALTHYLAX) 3350 17 GM PACKET PO SCH ×3 (06:04→22:38)
[2023-04-08] MEDS: INSULIN SLIDING SCALE (NOVOLOG) 1 VIAL SQ SCH ×4 (06:09→22:37)
[2023-04-08] MEDS: SEVELAMER CARBONATE 800 MG TAB (FP) PO SCH ×3 (08:23→17:54)
[2023-04-08] MEDS: PERITONEAL DIALYSIS 4.25% SOL 2,500 ML IP SCH (09:28)
[2023-04-08] MEDS: ASPIRIN 81 MG CHEWABLE TABLETS PO SCH (10:40)
[2023-04-08] MEDS: CLOPIDOGREL BISULFATE 75 MG TABLET (FP) PO SCH (10:40)
[2023-04-08] MEDS: CARVEDILOL 6.25 MG TABLET (FP) PO SCH ×2 (10:40→22:35)
[2023-04-08] MEDS: VITAMIN B COMP W-C 1 EA TABLET (NEPHRO-VITE) PO SCH (10:40)
[2023-04-08] MEDS: SACUBITRIL/VALSARTAN 24 MG-26 MG TABLET PO SCH ×2 (10:40→22:35)
[2023-04-08] MEDS: PREGABALIN 50 MG CAPSULE PO SCH ×2 (10:40→22:35)
[2023-04-08] MEDS: CINACALCET HCL 30 MG TAB (FP) PO SCH (10:46)
[2023-04-08] MEDS: GENTAMICIN SO4 0.1% TOPICAL OINTMENT 15 GM/TUBE TUBE TP SCH ×2 (12:03→23:16)
[2023-04-08] MEDS ORDERED: LACTULOSE 20 GM/30 ML UDC (FOR ORAL USE ONLY) PO ONE (13:34)
[2023-04-08] MEDS ORDERED: oxyCODONE HCL 5 MG TABLET PO ONE (18:03)
[2023-04-08] MEDS: ROSUVASTATIN CA 10 MG TABLET PO SCH (22:35)
[2023-04-08] MEDS: ALPRAZolam 0.25 MG TABLET PO PRN (22:35)
[2023-04-08] MEDS: INSULIN (LEVEMIR) 100 UNITS/ML UNITS SQ SCH (22:37)
[2023-04-09] MEDS: PERITONEAL DIALYSIS 2.5% SOLN 2,500 ML IP SCH ×3 (03:33→21:37)
[2023-04-09] MEDS: INSULIN SLIDING SCALE (NOVOLOG) 1 VIAL SQ SCH ×4 (06:35→21:06)
[2023-04-09] MEDS: POLYETHYLENE GLYCOL (HEALTHYLAX) 3350 17 GM PACKET PO SCH ×3 (06:36→21:05)
[2023-04-09] MEDS: SEVELAMER CARBONATE 800 MG TAB (FP) PO SCH ×3 (07:51→16:45)
[2023-04-09] MEDS: PERITONEAL DIALYSIS 4.25% SOL 2,500 ML IP SCH (08:43)
[2023-04-09] MEDS: VITAMIN B COMP W-C 1 EA TABLET (NEPHRO-VITE) PO SCH (09:23)
[2023-04-09] MEDS: PREGABALIN 50 MG CAPSULE PO SCH ×2 (09:23→21:06)
[2023-04-09] MEDS: CLOPIDOGREL BISULFATE 75 MG TABLET (FP) PO SCH (09:23)
[2023-04-09] MEDS: ASPIRIN 81 MG CHEWABLE TABLETS PO SCH (09:23)
[2023-04-09] MEDS: CARVEDILOL 6.25 MG TABLET (FP) PO SCH ×2 (09:23→21:05)
[2023-04-09] MEDS: SACUBITRIL/VALSARTAN 24 MG-26 MG TABLET PO SCH ×2 (09:23→21:05)
[2023-04-09] MEDS: CINACALCET HCL 30 MG TAB (FP) PO SCH (09:24)
[2023-04-09] MEDS: GENTAMICIN SO4 0.1% TOPICAL OINTMENT 15 GM/TUBE TUBE TP SCH ×3 (09:27→21:37)
[2023-04-09] MEDS ORDERED: PANTOPRAZOLE SODIUM 40 MG VIAL IVPUSH ONE (20:45)
[2023-04-09] MEDS: MAG HYDROX/AL HYDROX/SIMETH 30 ML UNIT-DOSE CUP PO PRN (21:05)
[2023-04-09] MEDS: ROSUVASTATIN CA 10 MG TABLET PO SCH (21:05)
[2023-04-09] MEDS: SENNOSIDES 8.6MG TABLET (FP) PO PRN (21:06)
[2023-04-09] MEDS: INSULIN (LEVEMIR) 100 UNITS/ML UNITS SQ SCH (21:08)
[2023-04-09] MEDS: ALPRAZolam 0.25 MG TABLET PO PRN (22:37)
[2023-04-10] MEDS: MAG HYDROX/AL HYDROX/SIMETH 30 ML UNIT-DOSE CUP PO PRN (02:41)
[2023-04-10] MEDS: PERITONEAL DIALYSIS 2.5% SOLN 2,500 ML IP SCH ×3 (03:13→21:22)
[2023-04-10] MEDS: ACETAMINOPHEN 325 MG TABLET (FP) PO PRN ×2 (04:48→15:04)
[2023-04-10] MEDS: INSULIN SLIDING SCALE (NOVOLOG) 1 VIAL SQ SCH ×4 (06:44→21:04)
[2023-04-10] MEDS: POLYETHYLENE GLYCOL (HEALTHYLAX) 3350 17 GM PACKET PO SCH ×3 (06:45→21:03)
[2023-04-10] MEDS: SEVELAMER CARBONATE 800 MG TAB (FP) PO SCH ×3 (08:19→17:09)
[2023-04-10] MEDS: VITAMIN B COMP W-C 1 EA TABLET (NEPHRO-VITE) PO SCH (09:21)
[2023-04-10] MEDS: PREGABALIN 50 MG CAPSULE PO SCH ×2 (09:21→21:03)
[2023-04-10] MEDS: ASPIRIN 81 MG CHEWABLE TABLETS PO SCH (09:21)
[2023-04-10] MEDS: CARVEDILOL 6.25 MG TABLET (FP) PO SCH ×2 (09:21→21:03)
[2023-04-10] MEDS: CLOPIDOGREL BISULFATE 75 MG TABLET (FP) PO SCH (09:21)
[2023-04-10] MEDS: SACUBITRIL/VALSARTAN 24 MG-26 MG TABLET PO SCH ×2 (09:21→21:03)
[2023-04-10] MEDS: GENTAMICIN SO4 0.1% TOPICAL OINTMENT 15 GM/TUBE TUBE TP SCH ×2 (09:22→21:08)
[2023-04-10] MEDS: PERITONEAL DIALYSIS 4.25% SOL 2,500 ML IP SCH (09:58)
[2023-04-10] MEDS: CINACALCET HCL 30 MG TAB (FP) PO SCH (10:31)
[2023-04-10] MEDS ORDERED: INSULIN SLIDING SCALE (NOVOLOG) 1 VIAL SQ ONE ×3 (11:42→17:17)
[2023-04-10] MEDS: LACTULOSE 20 GM/30 ML UDC (FOR ORAL USE ONLY) PO SCH (14:00)
[2023-04-10] MEDS ORDERED: ACETAMINOPHEN 1000 MG/100 ML BAG IVPB ONE (19:51)
[2023-04-10] MEDS ORDERED: ALPRAZolam 0.25 MG TABLET PO ONE (21:00)
[2023-04-10] MEDS: ROSUVASTATIN CA 10 MG TABLET PO SCH (21:03)
[2023-04-10] MEDS: INSULIN (LEVEMIR) 100 UNITS/ML UNITS SQ SCH (21:03)
[2023-04-11] MEDS: PERITONEAL DIALYSIS 2.5% SOLN 2,500 ML IP SCH (03:08)
[2023-04-11] MEDS: POLYETHYLENE GLYCOL (HEALTHYLAX) 3350 17 GM PACKET PO SCH (06:11)
[2023-04-11] MEDS: INSULIN SLIDING SCALE (NOVOLOG) 1 VIAL SQ SCH ×2 (06:21→11:28)
[2023-04-11] MEDS ORDERED: INSULIN (LEVEMIR) 100 UNITS/ML UNITS SQ SCH (07:00)
[2023-04-11 07:49] LABS: BASO % 0.5 % (0-2.0); EOS % 5.1 % (0-4.5); HEMOGLOBIN 9.5 GM/dL (11.7-16.9); LYMPH % 11.2 % (8-40); MCH 32.3 pg (25.7-33.7); MCHC 35.4 g/dl (32.0-35.9); MEAN CELL VOLUME 91.5 fl (80-96); MEAN PLT VOLUME 7.9 fl (7.5-11.1); MONO % 11.6 % (3.8-10.2); NEUT % 71.6 % (42.8-82.8); PLATELET COUNT 240 10^3/uL (134-434); RBC 2.95 M/mm3 (4.00-5.60); RDW 14.1 % (11.9-15.9); WHITE BLOOD COUNT 9.5 K/mm3 (4.0-10.0)
[2023-04-11 08:10] LABS: CHLORIDE 86 mmol/L (98-107); POTASSIUM 3.9 mmol/L (3.5-5.1); SODIUM 128 mmol/L (136-145)
[2023-04-11 08:11] LABS: CALCIUM 8.3 mg/dL (8.5-10.1)
[2023-04-11 08:13] LABS: BLOOD UREA NITROGEN 60.6 mg/dL (7-18)
[2023-04-11 08:16] LABS: ANION GAP 12 mmol/L (4-13); CO2 30 mmol/L (21-32)
[2023-04-11 08:26] LABS: CREATININE 10.4 mg/dL (0.55-1.3); GLUCOSE,RANDOM 403 mg/dL (74-106)
[2023-04-11 08:53] VITALS: RESP 18; TEMP 98.8
[2023-04-11] MEDS: CARVEDILOL 6.25 MG TABLET (FP) PO SCH (09:17)
[2023-04-11] MEDS: SEVELAMER CARBONATE 800 MG TAB (FP) PO SCH ×2 (09:17→11:28)
[2023-04-11] MEDS: VITAMIN B COMP W-C 1 EA TABLET (NEPHRO-VITE) PO SCH (09:17)
[2023-04-11] MEDS: CLOPIDOGREL BISULFATE 75 MG TABLET (FP) PO SCH (09:17)
[2023-04-11] MEDS: LACTULOSE 20 GM/30 ML UDC (FOR ORAL USE ONLY) PO SCH (09:18)
[2023-04-11] MEDS: CINACALCET HCL 30 MG TAB (FP) PO SCH (09:18)
[2023-04-11] MEDS: PREGABALIN 50 MG CAPSULE PO SCH (09:18)
[2023-04-11] MEDS: ASPIRIN 81 MG CHEWABLE TABLETS PO SCH (09:18)
[2023-04-11] MEDS: SACUBITRIL/VALSARTAN 24 MG-26 MG TABLET PO SCH (09:18)
[2023-04-11] MEDS: GENTAMICIN SO4 0.1% TOPICAL OINTMENT 15 GM/TUBE TUBE TP SCH (09:18)
[2023-04-11] MEDS: PERITONEAL DIALYSIS 4.25% SOL 2,500 ML IP SCH (11:20)
[2023-04-11] MEDS ORDERED: INSULIN SLIDING SCALE (NOVOLOG) 1 VIAL SQ ONE (11:39)
[2023-04-11 12:50] VITALS: BP 119/58; PULSE 85
== END 2023-04-11 14:59 | disposition home or self-care (01) | DRG 278 ==
LOC: JER 10:38 → JERBED 16:22 → J4S 04-02 03:12
PROVIDERS: ADMIT Family Medicine; ATTEND Family Medicine
PROC: 04FK3ZZ Fragmentation of Right Femoral Artery, Percutaneous Approach (ICD-10-PCS; 2023-04-07)
PROC: 047P3ZZ Dilation of Right Anterior Tibial Artery, Percutaneous Approach (ICD-10-PCS; 2023-04-07)
PROC: B44GZZZ Ultrasonography of Left Lower Extremity Arteries (ICD-10-PCS; 2023-04-07)
PROC: 3E05317 Introduction of Other Thrombolytic into Peripheral Artery, Percutaneous Approach (ICD-10-PCS; 2023-04-07)
PROC: 3E1M39Z Irrigation of Peritoneal Cavity using Dialysate, Percutaneous Approach (ICD-10-PCS; 2023-04-07)
PROC: 047K3ZZ Dilation of Right Femoral Artery, Percutaneous Approach (ICD-10-PCS; principal; 2023-04-07 15:30)
DX: E11.51 Type 2 diabetes mellitus with diabetic peripheral angiopathy without gangrene (principal); N18.6 End stage renal disease; I50.22 Chronic systolic (congestive) heart failure; I12.0 Hypertensive chronic kidney disease with stage 5 chronic kidney disease or end stage renal disease; L97.909 Non-pressure chronic ulcer of unspecified part of unspecified lower leg with unspecified severity; E87.1 Hypo-osmolality and hyponatremia; R10.9 Unspecified abdominal pain; D64.9 Anemia, unspecified; I25.10 Atherosclerotic heart disease of native coronary artery without angina pectoris; Z99.2 Dependence on renal dialysis; D73.5 Infarction of spleen; E11.22 Type 2 diabetes mellitus with diabetic chronic kidney disease; K59.00 Constipation, unspecified; I73.9 Peripheral vascular disease, unspecified
CPT/HCPCS: 36415; 73590-TC-RT-FY; 74018-TC-FY; 75635-TC; 76000-TC-FY; 80048; 80053; 81003; 82962; 83036; 83735; 84100; 84484; 84550; 85025; 85027; 85610; 85651; 85730; 86140; 86850; 86900; 86901; 87040; 87086; 87186; 93005; 93010; 93306-TC; 94760; 97116-GP; 97161-GP; 99285-25; C1725; C1760; C1769; J1644; Q9967

== ENCOUNTER 2023-04-19 13:18 | Inpatient (IN) | payer OTHER ==
[2023-04-19] MEDS ORDERED: PIPERACILLIN/TAZOB 4.5 GM 4.5 GM in DEXTROSE 5%-WATER 100 ML IVPB ONE (15:33)
[2023-04-19] MEDS ORDERED: VANCOMYCIN 1,000 MG in DEXTROSE 5%-WATER - 250 ML IVPB ONE (15:34)
[2023-04-19] MEDS ORDERED: ACETAMINOPHEN INJECTION 100 ML IVPB ONE (15:37)
[2023-04-19] MEDS ORDERED: PIPERACILLIN/TAZOB 4.5 GM 4.5 GM/100 ML BAG IVPB ONE (15:37)
[2023-04-19] MEDS ORDERED: ACETAMINOPHEN 1000 MG/100 ML BAG IVPB ONE (15:38)
[2023-04-19] MEDS ORDERED: morphine CARPU-JECT 4 MG/1 ML DISP.SYRIN IVPUSH ONE (16:03)
[2023-04-19] MEDS ORDERED: morphine SULFATE 4 MG/ML VIAL ONE (16:06)
[2023-04-19 16:14] LABS: BASO % 1.1 % (0-2.0); HEMOGLOBIN 10.1 GM/dL (11.7-16.9); LYMPH % 15.1 % (8-40); MCH 31.8 pg (25.7-33.7); MCHC 34.9 g/dl (32.0-35.9); MEAN CELL VOLUME 91.1 fl (80-96); MEAN PLT VOLUME 7.1 fl (7.5-11.1); MONO % 7.3 % (3.8-10.2); NEUT % 72.5 % (42.8-82.8); PLATELET COUNT 372 10^3/uL (134-434); RBC 3.19 M/mm3 (4.00-5.60); RDW 14.2 % (11.9-15.9); WHITE BLOOD COUNT 11.9 K/mm3 (4.0-10.0)
[2023-04-19 16:23] LABS: INR 1.12 (0.83-1.09)
[2023-04-19 16:26] LABS: ACTIVATED PTT 31.2 SECONDS (25.2-36.5)
[2023-04-19] MEDS ORDERED: VANCOMYCIN 1 GRAM (PRE-DOCKED) 1,000 MG/250 ML BAG IVPB ONE (16:34)
[2023-04-19 16:35] LABS: CHLORIDE 97 mmol/L (98-107); POTASSIUM 4.5 mmol/L (3.5-5.1); SODIUM 136 mmol/L (136-145)
[2023-04-19 16:37] LABS: ALBUMIN 2.7 g/dl (3.4-5.0); CALCIUM 8.9 mg/dL (8.5-10.1)
[2023-04-19 16:38] LABS: ANION GAP 13 mmol/L (4-13); BLOOD UREA NITROGEN 82.2 mg/dL (7-18); CO2 26 mmol/L (21-32); GLUCOSE,RANDOM 202 mg/dL (74-106)
[2023-04-19 16:41] LABS: SGOT/AST 8 U/L (15-37); SGPT/ALT 15 U/L (13-61)
[2023-04-19 16:42] LABS: BILIRUBIN,TOTAL 0.3 mg/dL (0.2-1)
[2023-04-19 16:44] LABS: ALK PHOS 81 U/L (45-117)
[2023-04-19] MEDS ORDERED: SEVELAMER CARBONATE 800 MG TAB (FP) ONE (17:18)
[2023-04-19] MEDS: SEVELAMER CARBONATE 800 MG TAB (FP) PO SCH (17:36)
[2023-04-19 17:38] LABS: ERYTHROCYTE SEDIMENTATION RATE 109 mm/hr (0-10)
[2023-04-19 23:55] VITALS: BMI 33.3
[2023-04-20] MEDS ORDERED: ACETAMINOPHEN 1000 MG/100 ML BAG IVPB ONE (00:11)
[2023-04-20] MEDS: ROSUVASTATIN CA 10 MG TABLET PO SCH ×2 (00:19→21:14)
[2023-04-20] MEDS: SACUBITRIL/VALSARTAN 24 MG-26 MG TABLET PO SCH ×3 (00:19→21:14)
[2023-04-20] MEDS: CARVEDILOL 6.25 MG TABLET (FP) PO SCH ×3 (00:20→21:14)
[2023-04-20] MEDS ORDERED: ACETAMINOPHEN 1000 MG/100 ML BAG IVPB PRN (08:00)
[2023-04-20] MEDS: SEVELAMER CARBONATE 800 MG TAB (FP) PO SCH ×3 (08:24→16:41)
[2023-04-20 09:38] LABS: BASO % 0.6 % (0-2.0); EOS % 4.7 % (0-4.5); HEMATOCRIT 26.4 % (35.4-49); HEMOGLOBIN 9.2 GM/dL (11.7-16.9); LYMPH % 20.9 % (8-40); MCH 32.1 pg (25.7-33.7); MCHC 34.8 g/dl (32.0-35.9); MEAN CELL VOLUME 92.1 fl (80-96); MEAN PLT VOLUME 6.8 fl (7.5-11.1); MONO % 8.1 % (3.8-10.2); NEUT % 65.7 % (42.8-82.8); PLATELET COUNT 312 10^3/uL (134-434); RBC 2.87 M/mm3 (4.00-5.60); WHITE BLOOD COUNT 9.1 K/mm3 (4.0-10.0)
[2023-04-20 10:06] LABS: CHLORIDE 98 mmol/L (98-107); POTASSIUM 4.6 mmol/L (3.5-5.1); SODIUM 137 mmol/L (136-145)
[2023-04-20 10:54] LABS: ANION GAP 14 mmol/L (4-13); CO2 25 mmol/L (21-32)
[2023-04-20 11:06] LABS: CALCIUM 8.7 mg/dL (8.5-10.1); GLUCOSE,RANDOM 140 mg/dL (74-106); MAGNESIUM 2.4 mg/dL (1.8-2.4)
[2023-04-20 11:07] LABS: BLOOD UREA NITROGEN 88.9 mg/dL (7-18)
[2023-04-20 11:08] LABS: ALBUMIN 2.4 g/dl (3.4-5.0)
[2023-04-20 11:12] LABS: SGOT/AST 5 U/L (15-37)
[2023-04-20 11:13] LABS: ALK PHOS 72 U/L (45-117)
[2023-04-20 11:14] LABS: BILIRUBIN,TOTAL 0.2 mg/dL (0.2-1); TOT PROT 6.1 g/dl (6.4-8.2)
[2023-04-20] MEDS ORDERED: LIDOCAINE HCL 1%, 10 MG/ML (10ML VIAL) MDV SQ ONE ×2 (11:30)
[2023-04-20] MEDS ORDERED: LIDOCAINE HCL 1%, 10 MG/ML (20ML VIAL) SQ ONE (11:30)
[2023-04-20] MEDS: PIPERACILLIN/TAZOB 2.25 GM 2.25 GM in DEXTROSE 5%-WATER - 50 ML IVPB SCH ×2 (11:48→17:07)
[2023-04-20 11:56] LABS: CREATININE 11.7 mg/dL (0.55-1.3)
[2023-04-20 12:08] LABS: CREATININE 12.2 mg/dL (0.55-1.3)
[2023-04-20 13:33] LABS: SGPT/ALT 11 U/L (13-61)
[2023-04-20] MEDS: PERITONEAL DIALYSIS 2.5% SOLN 2,500 ML IP SCH ×2 (17:36→23:20)
[2023-04-20] MEDS: morphine SULFATE 4 MG/ML VIAL IVPUSH PRN (22:58)
[2023-04-21] MEDS: PIPERACILLIN/TAZOB 2.25 GM 2.25 GM in DEXTROSE 5%-WATER - 50 ML IVPB SCH ×3 (02:10→17:35)
[2023-04-21] MEDS: PERITONEAL DIALYSIS 2.5% SOLN 2,500 ML IP SCH ×3 (05:28→18:27)
[2023-04-21] MEDS: SEVELAMER CARBONATE 800 MG TAB (FP) PO SCH ×3 (08:07→17:35)
[2023-04-21] MEDS: CARVEDILOL 6.25 MG TABLET (FP) PO SCH ×2 (10:16→22:18)
[2023-04-21] MEDS: SACUBITRIL/VALSARTAN 24 MG-26 MG TABLET PO SCH ×2 (10:16→22:18)
[2023-04-21] MEDS ORDERED: COLLAGENASE CLOSTRIDIUM HIST. 30 GRAMS TUBE TP SCH (10:30)
[2023-04-21] MEDS: morphine SULFATE 4 MG/ML VIAL IVPUSH PRN ×2 (11:53→18:48)
[2023-04-21] MEDS: COLLAGENASE CLOSTRIDIUM HIST. 30 GRAMS TUBE TP SCH (13:57)
[2023-04-21] MEDS: INSULIN SLIDING SCALE (NOVOLOG) 1 VIAL SQ SCH (22:18)
[2023-04-21] MEDS: ROSUVASTATIN CA 10 MG TABLET PO SCH (22:18)
[2023-04-22] MEDS: PERITONEAL DIALYSIS 2.5% SOLN 2,500 ML IP SCH ×3 (00:21→11:47)
[2023-04-22] MEDS: PIPERACILLIN/TAZOB 2.25 GM 2.25 GM in DEXTROSE 5%-WATER - 50 ML IVPB SCH ×2 (01:20→10:20)
[2023-04-22] MEDS: morphine SULFATE 4 MG/ML VIAL IVPUSH PRN ×2 (05:47→12:06)
[2023-04-22] MEDS: INSULIN SLIDING SCALE (NOVOLOG) 1 VIAL SQ SCH ×2 (06:21→11:58)
[2023-04-22] MEDS: SEVELAMER CARBONATE 800 MG TAB (FP) PO SCH ×2 (08:46→11:58)
[2023-04-22 09:22] LABS: CHLORIDE 99 mmol/L (98-107); POTASSIUM 4.6 mmol/L (3.5-5.1); SODIUM 135 mmol/L (136-145)
[2023-04-22 09:24] LABS: ANION GAP 9 mmol/L (4-13); BLOOD UREA NITROGEN 66.9 mg/dL (7-18); CO2 27 mmol/L (21-32); GLUCOSE,RANDOM 252 mg/dL (74-106)
[2023-04-22 09:30] LABS: CREATININE 10.7 mg/dL (0.55-1.3)
[2023-04-22] MEDS ORDERED: COLLAGENASE CLOSTRIDIUM HIST. 30 GRAMS TUBE TP SCH (10:00)
[2023-04-22] MEDS: CARVEDILOL 6.25 MG TABLET (FP) PO SCH (10:20)
[2023-04-22] MEDS: SACUBITRIL/VALSARTAN 24 MG-26 MG TABLET PO SCH (10:20)
[2023-04-22] MEDS: COLLAGENASE CLOSTRIDIUM HIST. 30 GRAMS TUBE TP SCH (10:22)
[2023-04-22 11:00] VITALS: TEMP 97.6
[2023-04-22 13:54] VITALS: BP 117/70; PULSE 59; RESP 18
== END 2023-04-22 13:54 | disposition home or self-care (01) | DRG 602 ==
LOC: JER 13:18 → JERBED 16:24 → J8W 19:58 → J7W 04-20 01:58 → J8W 04-20 05:06 → J4S 04-20 12:34
PROVIDERS: ADMIT Internal Medicine; ATTEND Internal Medicine
PROC: 0H9KXZZ Drainage of Right Lower Leg Skin, External Approach (ICD-10-PCS; principal; 2023-04-20)
DX: L03.115 Cellulitis of right lower limb (principal); N18.6 End stage renal disease; E11.52 Type 2 diabetes mellitus with diabetic peripheral angiopathy with gangrene; L97.818 Non-pressure chronic ulcer of other part of right lower leg with other specified severity; I13.2 Hypertensive heart and chronic kidney disease with heart failure and with stage 5 chronic kidney disease, or end stage renal disease; I50.32 Chronic diastolic (congestive) heart failure; D64.9 Anemia, unspecified; E78.00 Pure hypercholesterolemia, unspecified; E11.622 Type 2 diabetes mellitus with other skin ulcer; E11.22 Type 2 diabetes mellitus with diabetic chronic kidney disease; Z99.2 Dependence on renal dialysis
CPT/HCPCS: 36415; 71045-TC-FY; 73590-TC-RT-FY; 80048; 80053; 82962; 83735; 85025; 85610; 85651; 85730; 86140; 86850; 86900; 86901; 87040; 87070; 87077; 87205; 93005; 93010; 97116-GP; 97161-GP; 99285-25

== ENCOUNTER 2023-08-03 07:45 | Inpatient (IN) | payer OTHER ==
[2023-08-03 07:53] VITALS: BMI 36.6
[2023-08-03 10:57] LABS: BASO % 1.2 % (0-2.0); HEMATOCRIT 26.1 % (35.4-49); HEMOGLOBIN 9.2 GM/dL (11.7-16.9); LYMPH % 20.9 % (8-40); MCH 31.6 pg (25.7-33.7); MCHC 35.1 g/dl (32.0-35.9); MEAN CELL VOLUME 90.2 fl (80-96); MEAN PLT VOLUME 7.4 fl (7.5-11.1); MONO % 11.9 % (3.8-10.2); PLATELET COUNT 215 10^3/uL (134-434); RBC 2.89 M/mm3 (4.00-5.60); RDW 14.8 % (11.9-15.9); WHITE BLOOD COUNT 6.8 K/mm3 (4.0-10.0)
[2023-08-03 11:05] LABS: INR 0.97 (0.83-1.09); PROTHROMBIN TIME (PATIENT) 11.3 SEC (9.7-13.0)
[2023-08-03 11:07] LABS: ACTIVATED PTT 30.8 SECONDS (25.2-36.5)
[2023-08-03 11:14] LABS: CHLORIDE 99 mmol/L (98-107); SODIUM 134 mmol/L (136-145)
[2023-08-03 11:16] LABS: CALCIUM 8.3 mg/dL (8.5-10.1)
[2023-08-03 11:17] LABS: ALBUMIN 2.7 g/dl (3.4-5.0); ANION GAP 12 mmol/L (4-13); BLOOD UREA NITROGEN 103.4 mg/dL (7-18); CO2 24 mmol/L (21-32); GLUCOSE,RANDOM 121 mg/dL (74-106)
[2023-08-03 11:20] LABS: SGOT/AST 6 U/L (15-37); SGPT/ALT 19 U/L (13-61)
[2023-08-03 11:22] LABS: ALK PHOS 73 U/L (45-117); BILIRUBIN,TOTAL 0.4 mg/dL (0.2-1); CREATININE 12.2 mg/dL (0.55-1.3); TOT PROT 6.3 g/dl (6.4-8.2)
[2023-08-03] MEDS ORDERED: PIPERACILLIN/TAZOB 3.375 GM 3.375 GM/50 ML BAG IVPB ONE ×2 (11:42→20:28)
[2023-08-03] MEDS: PIPERACILLIN/TAZOB 3.375 GM 3.375 GM in DEXTROSE 5%-WATER - 50 ML IVPB ONE (11:55)
[2023-08-03] MEDS: INSULIN ASPART SLIDING SCALE (NOVOLOG) 1 VIAL SQ SCH (13:30)
[2023-08-03] MEDS ORDERED: SEVELAMER CARBONATE 800 MG TAB (FP) ONE (14:16)
[2023-08-03] MEDS: SEVELAMER CARBONATE 800 MG TAB (FP) PO SCH (14:28)
[2023-08-03] MEDS: PIPERACILLIN/TAZOB 2.25 GM 2.25 GM in DEXTROSE 5%-WATER - 50 ML IVPB SCH (19:30)
[2023-08-03] MEDS ORDERED: ROSUVASTATIN CA 5 MG TABLET ONE (21:59)
[2023-08-03] MEDS ORDERED: SACUBITRIL/VALSARTAN 24 MG-26 MG TABLET ONE (21:59)
[2023-08-03] MEDS ORDERED: PREGABALIN 50 MG CAPSULE ONE (21:59)
[2023-08-03] MEDS ORDERED: CARVEDILOL 6.25 MG TABLET (FP) ONE (22:00)
[2023-08-03] MEDS ORDERED: INSULIN REGULAR HUMAN 100 UNITS/ML *VIAL ONE (22:00)
[2023-08-03] MEDS: CARVEDILOL 6.25 MG TABLET (FP) PO SCH (22:05)
[2023-08-03] MEDS: SACUBITRIL/VALSARTAN 24 MG-26 MG TABLET PO SCH (22:05)
[2023-08-03] MEDS: ROSUVASTATIN CA 10 MG TABLET PO SCH (22:05)
[2023-08-03] MEDS: PREGABALIN 50 MG CAPSULE PO SCH (22:06)
[2023-08-03] MEDS: PERITONEAL DIALYSIS 2.5% SOLN 2,500 ML IP SCH (22:07)
[2023-08-04] MEDS ORDERED: ALPRAZolam 1 MG TABLET ONE (00:44)
[2023-08-04] MEDS ORDERED: FAMOTIDINE 20 MG TABLET ONE (00:44)
[2023-08-04] MEDS: FAMOTIDINE 20 MG TABLET PO ONE (00:47)
[2023-08-04] MEDS: ALPRAZolam 1 MG TABLET PO ONE ×2 (00:47→22:16)
[2023-08-04] MEDS ORDERED: PIPERACILLIN/TAZOB 2.25 GM 2.25 GM/50 ML BAG IVPB ONE ×2 (02:07→10:21)
[2023-08-04 08:14] LABS: BASO % 0.9 % (0-2.0); EOS % 5.4 % (0-4.5); HEMATOCRIT 24.4 % (35.4-49); HEMOGLOBIN 8.6 GM/dL (11.7-16.9); LYMPH % 23.6 % (8-40); MCH 32.1 pg (25.7-33.7); MCHC 35.1 g/dl (32.0-35.9); MEAN CELL VOLUME 91.6 fl (80-96); MEAN PLT VOLUME 7.5 fl (7.5-11.1); MONO % 13.7 % (3.8-10.2); NEUT % 56.4 % (42.8-82.8); PLATELET COUNT 193 10^3/uL (134-434); RBC 2.66 M/mm3 (4.00-5.60); RDW 14.4 % (11.9-15.9); WHITE BLOOD COUNT 6.9 K/mm3 (4.0-10.0)
[2023-08-04 08:16] LABS: CHLORIDE 102 mmol/L (98-107); POTASSIUM 5.2 mmol/L (3.5-5.1); SODIUM 134 mmol/L (136-145)
[2023-08-04 08:34] LABS: GLUCOSE,RANDOM 153 mg/dL (74-106)
[2023-08-04 08:35] LABS: CALCIUM 7.9 mg/dL (8.5-10.1)
[2023-08-04 08:36] LABS: ALBUMIN 2.4 g/dl (3.4-5.0); ANION GAP 10 mmol/L (4-13); CO2 22 mmol/L (21-32)
[2023-08-04 08:38] LABS: MAGNESIUM 1.7 mg/dL (1.8-2.4); SGOT/AST 8 U/L (15-37); SGPT/ALT 17 U/L (13-61)
[2023-08-04 08:39] LABS: TOT PROT 5.8 g/dl (6.4-8.2)
[2023-08-04 08:40] LABS: ALK PHOS 62 U/L (45-117)
[2023-08-04 08:43] LABS: BILIRUBIN,TOTAL 0.4 mg/dL (0.2-1)
[2023-08-04 09:29] LABS: BLOOD UREA NITROGEN 109.3 mg/dL (7-18)
[2023-08-04 09:30] LABS: CREATININE 12.8 mg/dL (0.55-1.3); PHOSPHOROUS 10.1 mg/dL (2.5-4.9)
[2023-08-04] MEDS ORDERED: PREGABALIN 25 MG CAPSULE ONE (10:23)
[2023-08-04] MEDS: CLOPIDOGREL BISULFATE 75 MG TABLET (FP) PO SCH (10:30)
[2023-08-04] MEDS: ASPIRIN 81 MG CHEWABLE TABLETS PO SCH (10:30)
[2023-08-05] MEDS: DOCUSATE SODIUM 100 MG CAPSULE (FP) PO SCH (11:28)
[2023-08-05] MEDS ORDERED: REGADENOSON 0.4 MG/5 ML PRE-FILLED SYRINGE IVPUSH ONE (14:53)
[2023-08-05] MEDS: REGADENOSON 0.4 MG/5 ML PRE-FILLED SYRINGE IVPUSH ONE (15:15)
[2023-08-05] MEDS: ALPRAZolam 1 MG TABLET PO PRN (23:12)
[2023-08-06] MEDS ORDERED: ALPRAZolam 1 MG TABLET PO PRN (11:59)
[2023-08-06] MEDS: ALPRAZolam 0.25 MG TABLET PO SCH (12:06)
[2023-08-08] MEDS: INSULIN (LEVEMIR) 100 UNITS/ML UNITS SQ SCH (06:19)
[2023-08-08 08:14] LABS: CHLORIDE 102 mmol/L (98-107); POTASSIUM 4.6 mmol/L (3.5-5.1); SODIUM 137 mmol/L (136-145)
[2023-08-08 08:16] LABS: ANION GAP 9 mmol/L (4-13); CO2 26 mmol/L (21-32); GLUCOSE,RANDOM 184 mg/dL (74-106)
[2023-08-08 08:17] LABS: ALBUMIN 2.6 g/dl (3.4-5.0)
[2023-08-08 08:19] LABS: SGPT/ALT 17 U/L (13-61)
[2023-08-08 08:20] LABS: CHOLESTEROL 99 mg/dL (50-200); SGOT/AST 10 U/L (15-37)
[2023-08-08 08:21] LABS: BILIRUBIN,TOTAL 0.4 mg/dL (0.2-1); LDL CHOLESTEROL (ONLY SJRH) 47 mg/dL (5-100); TOT PROT 6.2 g/dl (6.4-8.2)
[2023-08-08 08:22] LABS: ALK PHOS 50 U/L (45-117); HDL CHOLESTEROL 39 mg/dL (40-60)
[2023-08-08 08:25] LABS: CALCIUM 9.2 mg/dL (8.5-10.1); CREATININE 10.7 mg/dL (0.55-1.3)
[2023-08-08 09:10] LABS: HEMATOCRIT 26.3 % (35.4-49); HEMOGLOBIN 9.4 GM/dL (11.7-16.9); MCHC 35.8 g/dl (32.0-35.9); MEAN CELL VOLUME 92.1 fl (80-96); PLATELET COUNT 195 10^3/uL (134-434); RBC 2.86 M/mm3 (4.00-5.60); RDW 14.5 % (11.9-15.9); WHITE BLOOD COUNT 6.8 K/mm3 (4.0-10.0)
[2023-08-09 08:28] LABS: CHLORIDE 99 mmol/L (98-107); POTASSIUM 4.8 mmol/L (3.5-5.1); SODIUM 136 mmol/L (136-145)
[2023-08-09 08:31] LABS: CALCIUM 9.8 mg/dL (8.5-10.1)
[2023-08-09 08:32] LABS: ANION GAP 8 mmol/L (4-13); BLOOD UREA NITROGEN 80.1 mg/dL (7-18); CO2 29 mmol/L (21-32); GLUCOSE,RANDOM 227 mg/dL (74-106)
[2023-08-09 08:33] LABS: ALBUMIN 2.9 g/dl (3.4-5.0)
[2023-08-09 08:35] LABS: PHOSPHOROUS 8.2 mg/dL (2.5-4.9); SGOT/AST 6 U/L (15-37)
[2023-08-09 08:36] LABS: SGPT/ALT 18 U/L (13-61)
[2023-08-09 08:37] LABS: BILIRUBIN,TOTAL 0.4 mg/dL (0.2-1)
[2023-08-09 08:38] LABS: ALK PHOS 58 U/L (45-117); TOT PROT 6.8 g/dl (6.4-8.2)
[2023-08-09 08:43] LABS: CREATININE 10.8 mg/dL (0.55-1.3)
[2023-08-09] MEDS ORDERED: LIDOCAINE HCL 2% (20ML MULTI-DOSE VIAL) ONE (12:51)
[2023-08-09] MEDS ORDERED: BUPIVACAINE HCL/PF 0.5% (5MG/ML) 10 ML VIAL ONE (12:51)
[2023-08-09] MEDS ORDERED: MIDAZOLAM HCL 2 MG/2 ML SINGLE DOSE VIAL ONE (15:01)
[2023-08-09] MEDS ORDERED: FENTANYL CITRATE/PF 50 MCG/ML VIAL ONE ×2 (15:01→17:00)
[2023-08-09] MEDS ORDERED: PROPOFOL 20 ML ONE (15:07)
[2023-08-09] MEDS: LIDOCAINE HCL 2% (50ML VIAL) NR ONE (15:08)
[2023-08-09] MEDS: BUPIVACAINE HCL/PF 0.5% (5 MG/ML) 30 ML VIAL IJ ONE (15:08)
[2023-08-09] MEDS ORDERED: ONDANSETRON 4 MG/2 ML VIAL IVPUSH PRN ×2 (16:04→16:24)
[2023-08-09] MEDS: INSULIN ASPART SLIDING SCALE (NOVOLOG) 1 VIAL SQ SCH ×2 (18:03→21:44)
[2023-08-09] MEDS: SEVELAMER CARBONATE 800 MG TAB (FP) PO SCH (18:04)
[2023-08-09] MEDS: LACTATED RINGERS SOLUTION 1,000 ML IV SCH ×2 (18:08)
[2023-08-09] MEDS: SACUBITRIL/VALSARTAN 24 MG-26 MG TABLET PO SCH (21:43)
[2023-08-09] MEDS: ROSUVASTATIN CA 10 MG TABLET PO SCH (21:43)
[2023-08-09] MEDS: PREGABALIN 50 MG CAPSULE PO SCH (21:43)
[2023-08-09] MEDS: DOCUSATE SODIUM 100 MG CAPSULE (FP) PO SCH (21:43)
[2023-08-09] MEDS: CARVEDILOL 6.25 MG TABLET (FP) PO SCH (21:43)
[2023-08-10] MEDS: PERITONEAL DIALYSIS 2.5% SOLN 2,500 ML IP SCH ×2 (00:26→10:06)
[2023-08-10] MEDS: ALPRAZolam 0.25 MG TABLET PO SCH (00:26)
[2023-08-10] MEDS: ACETAMINOPHEN 1000 MG/100 ML BAG IVPB ONE (03:15)
[2023-08-10] MEDS: INSULIN (LEVEMIR) 100 UNITS/ML UNITS SQ SCH (06:17)
[2023-08-10] MEDS ORDERED: INSULIN (LEVEMIR) 100 UNITS/ML UNITS SQ SCH (07:00)
[2023-08-10] MEDS ORDERED: ONDANSETRON 4 MG/2 ML VIAL IVPUSH PRN ×2 (09:08→12:35)
[2023-08-10] MEDS ORDERED: FENTANYL CITRATE/PF 50 MCG/ML VIAL ONE ×4 (09:14→11:37)
[2023-08-10] MEDS ORDERED: MIDAZOLAM HCL 2 MG/2 ML SINGLE DOSE VIAL ONE ×2 (09:14→09:44)
[2023-08-10] MEDS ORDERED: PROPOFOL 20 ML ONE ×4 (09:30→11:03)
[2023-08-10] MEDS ORDERED: ceFAZolin SODIUM 1 GM VIAL ONE (09:38)
[2023-08-10] MEDS: ceFAZolin SODIUM 1 GM VIAL IVPB ONE (09:41)
[2023-08-10] MEDS: LIDOCAINE HCL 1%, 10 MG/ML (20ML VIAL) NR ONE ×2 (09:44)
[2023-08-10] MEDS ORDERED: ONDANSETRON 4 MG/2 ML VIAL ONE (09:47)
[2023-08-10] MEDS ORDERED: DEXAMETHASONE SOD PHOSPHATE 4 MG/1 ML VIAL ONE (09:47)
[2023-08-10] MEDS: HEPARIN NA (PORCINE) 5,000 UNITS/ML 1ML VIAL SQ ONE ×2 (09:50)
[2023-08-10] MEDS ORDERED: HEPARIN NA (PORCINE) 5,000 UNITS/ML 1ML VIAL ONE ×2 (10:04→11:01)
[2023-08-10] MEDS: ASPIRIN 81 MG CHEWABLE TABLETS PO SCH ×2 (14:49→16:26)
[2023-08-10] MEDS: CLOPIDOGREL BISULFATE 75 MG TABLET (FP) PO SCH (14:50)
[2023-08-10] MEDS: SEVELAMER CARBONATE 800 MG TAB (FP) PO SCH (17:26)
[2023-08-10] MEDS: INSULIN ASPART SLIDING SCALE (NOVOLOG) 1 VIAL SQ SCH (17:26)
[2023-08-10] MEDS: PERITONEAL DIALYSIS 1.5% SOLN 2,500 ML IP SCH (18:18)
[2023-08-10] MEDS: SACUBITRIL/VALSARTAN 24 MG-26 MG TABLET PO SCH (22:00)
[2023-08-10] MEDS: ROSUVASTATIN CA 10 MG TABLET PO SCH (22:00)
[2023-08-10] MEDS: CARVEDILOL 6.25 MG TABLET (FP) PO SCH (22:00)
[2023-08-10] MEDS: PREGABALIN 50 MG CAPSULE PO SCH (22:00)
[2023-08-10] MEDS: DOCUSATE SODIUM 100 MG CAPSULE (FP) PO SCH (22:01)
[2023-08-11] MEDS: PERITONEAL DIALYSIS 2.5% SOLN 2,500 ML IP SCH (00:15)
[2023-08-11] MEDS: ALPRAZolam 0.25 MG TABLET PO SCH (05:29)
[2023-08-11] MEDS: INSULIN (LEVEMIR) 100 UNITS/ML UNITS SQ SCH (06:26)
[2023-08-11] MEDS ORDERED: ASPIRIN 81 MG CHEWABLE TABLETS PO SCH (10:00)
[2023-08-11] MEDS: oxyCODONE HCL 5 MG TABLET PO PRN (10:12)
[2023-08-11] MEDS: CLOPIDOGREL BISULFATE 75 MG TABLET (FP) PO SCH (10:13)
[2023-08-11] MEDS: PIPERACILLIN/TAZOB 2.25 GM 2.25 GM in SODIUM CHLORIDE 50 ML IVPB SCH (19:48)
[2023-08-11] MEDS: PERITONEAL DIALYSIS 1.5% SOLN 2,500 ML IP SCH (21:03)
[2023-08-12] MEDS: PERITONEAL DIALYSIS 2.5% SOLN 2,500 ML IP SCH (02:57)
[2023-08-12 07:03] VITALS: RESP 18
[2023-08-12] MEDS: DOCUSATE SODIUM 100 MG CAPSULE (FP) PO SCH (14:29)
[2023-08-12 14:49] VITALS: BP 122/66; PULSE 76; TEMP 97.6
== END 2023-08-12 18:34 | disposition home or self-care (01) | DRG 570 ==
LOC: JER 07:45 → JERBED 09:42 → J6S 08-04 11:06 → J4S 08-04 16:51
PROVIDERS: ADMIT Internal Medicine; ATTEND Internal Medicine
PROC: 0QBL0ZX Excision of Right Tarsal, Open Approach, Diagnostic (ICD-10-PCS; 2023-08-09)
PROC: 0JBR0ZZ Excision of Left Foot Subcutaneous Tissue and Fascia, Open Approach (ICD-10-PCS; 2023-08-09)
PROC: 0JBQ0ZZ Excision of Right Foot Subcutaneous Tissue and Fascia, Open Approach (ICD-10-PCS; principal; 2023-08-09 14:30)
PROC: 04FN3ZZ Fragmentation of Left Popliteal Artery, Percutaneous Approach (ICD-10-PCS; 2023-08-10)
PROC: 04FU3ZZ Fragmentation of Left Peroneal Artery, Percutaneous Approach (ICD-10-PCS; 2023-08-10)
DX: L03.115 Cellulitis of right lower limb (principal); N18.6 End stage renal disease; E87.1 Hypo-osmolality and hyponatremia; L97.418 Non-pressure chronic ulcer of right heel and midfoot with other specified severity; L97.428 Non-pressure chronic ulcer of left heel and midfoot with other specified severity; I13.2 Hypertensive heart and chronic kidney disease with heart failure and with stage 5 chronic kidney disease, or end stage renal disease; I50.22 Chronic systolic (congestive) heart failure; E11.621 Type 2 diabetes mellitus with foot ulcer; E11.51 Type 2 diabetes mellitus with diabetic peripheral angiopathy without gangrene; E11.22 Type 2 diabetes mellitus with diabetic chronic kidney disease; L08.9 Local infection of the skin and subcutaneous tissue, unspecified; D63.1 Anemia in chronic kidney disease; E87.5 Hyperkalemia; Z99.2 Dependence on renal dialysis; B95.2 Enterococcus as the cause of diseases classified elsewhere; B95.7 Other staphylococcus as the cause of diseases classified elsewhere; B95.4 Other streptococcus as the cause of diseases classified elsewhere; I70.208 Unspecified atherosclerosis of native arteries of extremities, other extremity
CPT/HCPCS: 36415; 71045-TC-FY; 73630-TC-LT; 73630-TC-RT-FY; 73718-TC-LT; 73721-RT-TC; 76000-TC-FY; 78452-TC; 80053; 80061; 80307; 82962; 83036; 83605; 83735; 84100; 84484; 85025; 85027; 85610; 85651; 85730; 86140; 86850; 86900; 86901; 87040; 87070; 87075; 87186; 87205; 88307-TC; 88311-TC; 93005; 93010; 93017; 93306-TC; 93880-TC; 93925-TC; 93970-TC; 94760; 99285-25; A9502; C1725; C1760; C1769; C2623; J0131; J1644; J2785